=== PATIENT | female | born 1975 | race Caucasian/White ===

== ENCOUNTER → 2017-06-19 | Outpatient (CLI) | payer OTHER ==
[~2017-06-19] MED LIST: EFF/375 PO; VENL150C PO; VENL75CA73 PO
[2017-06-19 10:45] LABS: URINE APPEARANCE CLEAR (CLEAR); URINE BILIRUBIN NEG (NEG); URINE COLOR YELLOW; URINE EPITHELIAL CELL AUTO 0-5 /lpf (0-5); URINE NITRITE NEG (NEG); URINE SPECIFIC GRAVITY 1.009 (1.000-1.030); UROBILINOGEN NEG (NEG)
[2017-06-19 10:46] LABS: MANUAL MICROSCOPIC REQUIRED? NO; REVIEW REQ? NO
== END | disposition home or self-care (01) ==
LOC: C.LAB 09:24
PROVIDERS: ATTEND Family Medicine
DX: R31.9 Hematuria, unspecified (principal)

== ENCOUNTER 2017-07-16 13:33 | Emergency (ER) | payer OTHER ==
[~2017-07-16] VITALS: Ht 165.1 cm; Wt 72.2 kg
[~2017-07-16 13:33] MED LIST changes: -VENL150C PO; -VENL75CA73 PO
[2017-07-16 13:35] VITALS: TEMP 36.7; Ht 165.1 cm; Wt 72.2 kg
[2017-07-16] MEDS ORDERED: ASPIRIN 81 MG CHEW PO STA (13:48)
[2017-07-16] MEDS ORDERED: SODIUM CHLORIDE 0.9% 1000ML 1,000 ML IV STA (13:48)
[2017-07-16] MEDS ORDERED: ONDANSETRON INJ 2 MG/ML 2 ML VIAL IV STA (13:48)
[2017-07-16 13:52] VITALS: O2SAT 97
[2017-07-16] MEDS ORDERED: NITROGLYCERIN 0.4 MG SL PER TAB CHARGE SL PRN (14:00)
[2017-07-16 14:04] LABS: BASO % 0.4 %; BASO ABS # 0.03 K/uL (0-0.2); COMPLETE YES; EOS % 0.6 %; HEMATOCRIT 38.3 % (37-47); IG% 0.1 %; LYMPH ABS # 2.04 K/uL (1.2-3.4); MEAN CELL VOLUME 93.6 fL (80-100); MEAN CORPUSCULAR HEMOGLOBIN 31.8 pg (25-34); MEAN CORPUSCULAR HGB CONC 33.9 g/dl (32-36); MEAN PLATELET VOLUME 8.4 fL (7.4-10.4); MONO % 8.7 %; NEUT % 60.2 %; PLATELET COUNT 242 K/uL (130-400); RED BLOOD COUNT 4.09 M/uL (4.2-5.4); WHITE BLOOD COUNT 6.79 K/uL (4.8-10.8)
--- NOTE | 2017-07-16 14:16 | DIAGNOSTIC IMAGING REPORT ---
CHEST ONE VIEW PORTABLE HISTORY: Atypical CHEST PAIN COMPARISON: None. FINDINGS: The lungs are clear. Cardiac silhouette is normal in size. No pleural effusions. No pneumothorax. IMPRESSION: No acute process. Electronically signed by: Jose David Nicolas M.D. 07/16/2017 2:15 PM Dictated Date/Time: 07/16/2017 2:13 PM
[2017-07-16] MEDS ORDERED: VENL75CA73 PO (14:17)
[2017-07-16] MEDS ORDERED: VENL150C PO (14:17)
[2017-07-16 14:24] LABS: ALT/SGPT 21 U/L (12-78); AST/SGOT 14 U/L (15-37); BLOOD UREA NITROGEN 14 mg/dl (7-18); BUN/CREATININE RATIO 15.5 (10-20); CALCIUM 9.2 mg/dl (8.5-10.1); CARBON DIOXIDE 28 mmol/L (21-32); CHLORIDE 101 mmol/L (98-107); CREATININE 0.92 mg/dl (0.60-1.20); GLUCOSE 85 mg/dl (70-99); POTASSIUM 3.6 mmol/L (3.5-5.1); SODIUM 135 mmol/L (136-145)
[2017-07-16 14:29] LABS: ALKALINE PHOSPHATASE 66 U/L (45-117)
[2017-07-16] MEDS ORDERED: ACETAMINOPHEN 500 MG TAB PO STA (14:42)
[2017-07-16] MEDS ORDERED: KETOROLAC TROMETHAMINE 30 MG/ML VIAL IV STA (15:56)
--- NOTE | 2017-07-16 17:14 | EMERGENCY ROOM VISIT NOTE ---
History Report prepared by Sergio: Can Cavanaugh Under the Supervision of: Dr. Devan Humphrey M.D. First contact with patient: 13:38 Chief Complaint: CARDIAC ASSESSMENT Stated Complaint: CHEST PAIN History of Present Illness The patient is a 42 year old female who presents to the Emergency Room with complaints of persistent chest palpitations beginning 20 minutes ago. Her symptoms began while she was sitting and talking on the phone. The patient's symptoms are improved with deep breathing. She notes that she has been under a lot of stress recently. She is unsure if her symptoms are related to anxiety. The patient also complains of nausea, left sided neck pain and upper back pain. 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 The patient is not on any blood thinners and has no history of blood clots. She notes that she is on medication for depression, and had her medication dosage increased a few weeks ago. She had a stress test about six years ago which was normal. Source of History: patient Onset: 20 minutes ago Position: chest Quality: other (palpitations) Timing: other (persistent) Modifying Factors (Relieving): breathing (deep) Associated Symptoms: + neck pain (left side), + nausea, + back pain (upper) Review of Systems See HPI for pertinent positives and negatives. A total of ten systems were reviewed and were otherwise negative. Past Medical & Surgical Medical Problems: (1) CML in remission (2) Ectopic (3) UTI (urinary tract infection) Surgical Problems: (1) History of unilateral salpingectomy Family History No pertinent family history stated. Social History Smoking Status: Never Smoker Alcohol Use: occasionally Marital Status: Occupation Status: employed Current/Historical Medications Scheduled Venlafaxine Hcl (Venlafaxine Extended Rel), 75 MG PO Q2D Venlafaxine Hcl (Effexor Xr), 150 MG PO DAILY Allergies Coded Allergies: Latex (Verified Allergy, Unknown, RASH, 07/16/17) Levofloxacin (Verified Allergy, Unknown, RASH, 07/16/17) Morphine (Verified Allergy, Unknown, HIVES, 07/16/17) Physical Exam Vital Signs Date Time Temp Pulse Resp B/P (MAP) Pulse Ox O2 Delivery O2 Flow Rate FiO2 07/16/17 17:41 70 18 122/80 99 Room Air 07/16/17 16:05 67 18 128/75 100 Room Air 07/16/17 14:57 72 18 129/77 100 Room Air 07/16/17 14:13 65 18 126/85 97 Room Air 07/16/17 13:52 97 Room Air 07/16/17 13:51 64 07/16/17 13:35 36.7 72 20 157/91 99 Room Air Physical Exam GENERAL: Awake, alert, anxious-appearing, in no distress HENT: Normocephalic, atraumatic. Oropharynx unremarkable. EYES: Normal conjunctiva. Sclera non-icteric. NECK: Supple. No nuchal rigidity. FROM. No JVD. RESPIRATORY: Clear to auscultation. CARDIAC: Regular rate, normal rhythm. Extremities warm and well perfused. Pulses equal. ABDOMEN: Soft, non-distended. No tenderness to palpation. No rebound or guarding. No masses. RECTAL: Deferred. MUSCULOSKELETAL: Chest examination reveals no tenderness. The back is symmetrical on inspection without obvious abnormality. There is no CVA tenderness to palpation. No joint edema. LOWER EXTREMITIES: Calves are equal size bilaterally and non-tender. No edema. No discoloration. NEURO: Normal sensorium. No sensory or motor deficits noted. SKIN: No rash or jaundice noted. Medical Decision & Procedures ER Provider Diagnostic Interpretation: X-ray: Per my interpretation, radiologist review. CHEST ONE VIEW PORTABLE FINDINGS: The lungs are clear. Cardiac silhouette is normal in size. No pleural effusions. No pneumothorax. IMPRESSION: No acute process. Electronically signed by: Jose David Nicolas M.D. 07/16/2017 2:15 PM Laboratory Results 07/16/17 13:49 Red Blood Count 4.09, Mean Corpuscular Volume 93.6, Mean Corpuscular Hemoglobin 31.8, Mean Corpuscular Hemoglobin Concent 33.9, Mean Platelet Volume 8.4, Neutrophils (%) (Auto) 60.2, Lymphocytes (%) (Auto) 30.0, Monocytes (%) (Auto) 8.7, Eosinophils (%) (Auto) 0.6, Basophils (%) (Auto) 0.4, Neutrophils # (Auto) 4.08, Lymphocytes # (Auto) 2.04, Monocytes # (Auto) 0.59, Eosinophils # (Auto) 0.04, Basophils # (Auto) 0.03 8/23/17 13:49 Test 07/16/17 13:49 07/16/17 16:50 White Blood Count 6.79 K/uL (4.8-10.8) Red Blood Count 4.09 M/uL (4.2-5.4) Hemoglobin 13.0 g/dL (12.0-16.0) Hematocrit 38.3 % (37-47) Mean Corpuscular Volume 93.6 fL (80-100) Mean Corpuscular Hemoglobin 31.8 pg (25-34) Mean Corpuscular Hemoglobin Concent 33.9 g/dl (32-36) Platelet Count 242 K/uL (130-400) Mean Platelet Volume 8.4 fL (7.4-10.4) Neutrophils (%) (Auto) 60.2 % Lymphocytes (%) (Auto) 30.0 % Monocytes (%) (Auto) 8.7 % Eosinophils (%) (Auto) 0.6 % Basophils (%) (Auto) 0.4 % Neutrophils # (Auto) 4.08 K/uL (1.4-6.5) Lymphocytes # (Auto) 2.04 K/uL (1.2-3.4) Monocytes # (Auto) 0.59 K/uL (0.11-0.59) Eosinophils # (Auto) 0.04 K/uL (0-0.5) Basophils # (Auto) 0.03 K/uL (0-0.2) RDW Standard Deviation 43.4 fL (36.4-46.3) RDW Coefficient of Variation 12.7 % (11.5-14.5) Immature Granulocyte % (Auto) 0.1 % Immature Granulocyte # (Auto) 0.01 K/uL (0.00-0.02) Anion Gap 6.0 mmol/L (3-11) Est Creatinine Clear Calc Drug Dose 77.7 ml/min Estimated GFR () 87.8 Estimated GFR (Non- 75.7 BUN/Creatinine Ratio 15.5 (10-20) Calcium Level 9.2 mg/dl (8.5-10.1) Total Bilirubin 0.4 mg/dl (0.2-1) Direct Bilirubin < 0.1 mg/dl (0-0.2) Aspartate Amino Transf (AST/SGOT) 14 U/L (15-37) Alanine Aminotransferase (ALT/SGPT) 21 U/L (12-78) Alkaline Phosphatase 66 U/L (45-117) Total Protein 7.7 gm/dl (6.4-8.2) Albumin 4.0 gm/dl (3.4-5.0) Lipase 338 U/L (73-393) Troponin I < 0.015 ng/ml (0-0.045) Laboratory results reviewed by me Medications Administered Medications (Trade) Dose Ordered Sig/Odin Route Start Time Stop Time Status Last Admin Dose Admin Ondansetron HCl (Zofran Inj) 4 mg NOW STAT IV 07/16/17 13:48 07/16/17 13:51 DC 07/16/17 14:09 4 MG Sodium Chloride 1,000 ml @ 999 mls/hr Q1H1M STAT IV 07/16/17 13:48 07/16/17 14:48 DC 07/16/17 14:12 999 MLS/HR Aspirin (Aspirin Chew) 324 mg NOW STAT PO 07/16/17 13:48 07/16/17 13:51 DC 07/16/17 14:11 324 MG Nitroglycerin (Nitrostat Tab) 0.4 mg Q5M PRN SL 07/16/17 14:00 07/16/17 19:36 DC 07/16/17 14:12 0.4 MG Acetaminophen (Tylenol Tab) 1,000 mg NOW STAT PO 07/16/17 14:42 07/16/17 14:43 DC 07/16/17 14:56 1,000 MG Ketorolac Tromethamine (Toradol Inj) 30 mg NOW STAT IV 07/16/17 15:56 07/16/17 15:57 DC 07/16/17 16:04 30 MG ECG Indication: palpitations Rate (beats per minute): 72 Rhythm: normal sinus Findings: no acute ischemic change, other (Normal axis. ) Change: Repeat ECG was unchanged from the previous. ED Course 1341: The patient was evaluated in room C2. A complete history and physical exam was performed. 1348: Ordered Aspirin Chew 324 mg PO, Sodium Chloride 1000 ml @ 999 mls/hr IV, Zofran Inj 4 mg IV. 1400: Ordered Nitrostat Tab 0.4 mg SL. 1442: Ordered Tylenol Tab 1000 mg PO. 1556: Ordered Toradol Inj 30 mg IV. 1614: I reassessed the patient. Her pain has resolved. 1754: I reevaluated the patient. Discussed results and discharge instructions: she verbalized understanding and agreement. The patient is ready for discharge. Medical Decision I reviewed the patient's past medical history, medications, and the nursing notes as described above. Triage Nursing notes reviewed. The patient's presentation and history were concerning for ACS, arrhythmia, pneumonia, bronchitis, pericarditis, myocarditis, costochondritis and panic attack. Patient is a 42 y/o woman who presents to ED with c/o of palpitations and cp per HPI. On arrival the patient is in NAD. AFVSS. Reports palpitations but with NSR without ectopy. EKG unremkarlable. Trop negative. CXR unremarkable. PERC negative. NTG with resolution of sx but effect non-specific. 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 Thus unlikely acs. Sx additionally improved with apap and toradol. Findings and plan for follow-up d/ w patient. Patient agreeable and d/c'd per discharge instructions. Impression Primary Impression: Chest pain Additional Impression: Heart palpitations Scribe Attestation The scribe's documentation has been prepared under my direction and personally reviewed by me in its entirety. I confirm that the note above accurately reflects all work, treatment, procedures, and medical decision making performed by me. Departure Information Dispostion Home / Self-Care Referrals Daniel Crowder D.O. (PCP) Patient Instructions Chest Pain - [facility], ED Palpitations, My [facility] Additional Instructions Please follow up with your primary care physician in the next 1-3 days for reevaluation. Otherwise, your exam, EKG, chest x-ray, and lab results did not show signs of an emergent condition at this time. Return to the emergency department for worsening symptoms as described in the accompanying instructions. Problem Qualifiers
[2017-07-16 17:41] VITALS: BP 122/80; PULSE 70; O2SAT 99
== END 2017-07-16 18:09 | disposition home or self-care (01) ==
LOC: C.EDB 13:34 → C.EDC 18:09
DX: R07.9 Chest pain, unspecified (principal); R00.2 Palpitations; F32.9 Major depressive disorder, single episode, unspecified; Z85.6 Personal history of leukemia; Z86.73 Personal history of transient ischemic attack (TIA), and cerebral infarction without residual deficits; Z90.721 Acquired absence of ovaries, unilateral

== ENCOUNTER 2025-02-08 16:21 | Observation (INO) ==
--- NOTE | 2025-02-08 16:47 | Emergency Department Note ---
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 States she then had some sharp pain transiently into her left arm. This lasted. Then then resolved and then returned. Took some Tums without improvement. No nausea. Maybe little short of breath. No syncope or trauma. No heavy lifting or other illness in the last week. Patient states driving over here to the hospital with few return of significant chest discomfort and a bit of left arm pain but that resolved upon getting to the parking lot here. Denies symptoms currently. Did recently travel to [place] last week. Denies leg pain. Denies any heart issues in the past or family medical history of heart issues to her knowledge. Did have a stress test some years ago that was normal after an abnormal EKG. No numbness or pain currently in the left arm. PAST MEDICAL HISTORY: As noted above MEDICATIONS: Reviewed home medications FMH: No significant cardiac disease reported SOCIAL HISTORY: Non-smoker PHYSICAL EXAM: GENERAL: alert and oriented in no acute distress on stretcher Head: normocephalic and atraumatic EYES: No injection, discharge or icterus. NECK: Trachea midline ENT: Mucous membranes pink and moist LUNGS: Airway patent. No retractions. Breath sounds clear HEART: Regular rate and rhythm. No chest wall tenderness ABDOMEN: Soft and non-tender, without guarding or rebound. SKIN: Acyanotic, warm, dry, without rashes EXTREMITIES: Without swelling, tenderness or deformity NEUROLOGICAL: No focal deficits. No aphasia. No facial droop or slurred speech. Ambulatory. EK bpm sinus bradycardia with unclear right bundle branch block. No acute ST segment elevation or depression with a QTc of 384.. EK bpm sinus bradycardia incomplete right bundle branch block. No acute ST segment elevation or depression without significant change from previous. CONTINUOUS CARDIAC MONITORING: was ordered and showed a heart rate of 50s to 70s bpm in sinus bradycardia to normal sinus rhythm Patient's laboratory studies and imaging reviewed. Differential includes Cardiac ischemia, aortic dissection, pulmonary embolism, pneumothorax, pneumonia, pericarditis, myocarditis, esophageal rupture, GERD, cholecystitis, pancreatitis, musculoskeletal, as well as other pathologies. IMPRESSION/MEDICAL DECISION MAKING: No pain on palpation of the chest with move the left arm. No syncope or trauma. No recent illness reported. Did travel last week. As such we will complete a D-dimer given random and chest pressure. Not significant tachycardic toxic however lower suspicion for PE and dissection. EKG without evidence of STEMI. No significant family history or truly real significant personal risk factors other than age and weight. Will give full dose aspirin. Basic blood work obtained. Patient did shortly have return of chest discomfort. Repeat EKG without significant changes. Symptoms quite transient. Will continue to monitor. Blood work here without significant leukocytosis or anemia. No significant lecture light abnormalities as acute renal dysfunction. No transaminitis or concerning findings for hepatitis/pancreatitis. D-dimer normal doubt PE. Troponin returns normal at 3.9 drawn approximately 2 and half hours after onset of symptoms. Heart score low risk. Discussed with the patient findings. Discussed given fairly quick presentation to the ER after start of symptoms would recommend that we repeat a troponin here to ensure no change. Discussed with the other option possible observation. In discussion with the patient and her at bedside she felt much more comfortable given the severity of early symptoms by her report of staying for further observation and possible stress tomorrow. Discussed with the hospitalist team here. DIAGNOSIS: Atypical chest pain DISPOSITION: Hospitalist will evaluate Patient was agreeable with this plan. Past Med/Surg History Problem List (Updated 02/08/25 @ 19:38 by Lili Greenberg DO) GERD (gastroesophageal reflux disease) Atypical chest pain (Acute) Cervicogenic headache Occipital neuralgia Chronic migraine Chronic daily headache Chiari malformation Herpes zoster Anxiety (Chronic) Ectopic History of unilateral salpingectomy Diverticulosis (Chronic) Medical History Anxiety Cervicogenic headache Chiari malformation Chronic daily headache Chronic migraine Chronic myelogenous leukemia Occipital neuralgia Surgical History H/O bone marrow transplant H/O tubal ligation H/O: Hx of bilateral breast reduction surgery Family History Father Cancer Mother Hypertension Social History Smoking Status: Never smoker Hx Alcohol Use: Yes Alcohol type: beer, wine and hard liquor Hx Substance Use: No Preferred Language: Urdu Rn Staffing Required: No Beliefs That Will Affect Care: None marital status: Current Living Situation: Spouse current occupational status: employed 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 [employer] Feels Safe at Home: Yes Assistive Devices: Glasses Allergies Allergies Allergy/AdvReac Type Severity Reaction Status Date / Time latex Allergy Intermediate RASH Verified 02/08/25 18:01 levofloxacin Allergy Intermediate RASH Verified 02/08/25 18:01 morphine Allergy Intermediate HIVES Verified 02/08/25 18:01 oxycodone [From OxyContin] AdvReac Intermediate Hallucinati Verified 02/08/25 18:01 ng Home Meds Home Medications Medication Instructions Recorded Confirmed buspirone 10 mg tablet 10 mg PO BID 02/08/25 02/08/25 cholecalciferol (vitamin D3) 50 1,000 mcg PO BID 02/08/25 02/08/25 mcg (2,000 unit) tablet (Vitamin D3) cyanocobalamin (vitamin B-12) 1,000 mcg PO DAILY 02/08/25 02/08/25 1,000 mcg tablet (Vitamin B-12) fluoxetine 20 mg capsule 20 mg PO DAILY 02/08/25 02/08/25 galcanezumab-gnlm 120 mg/mL 120 mg subcut MONTHLY 02/08/25 02/08/25 subcutaneous pen injector (Emgality Pen) Results & Data (ED) Vital Signs Vital Signs - 24 hr 02/08/25 16:26 02/08/25 16:57 02/08/25 18:02 Temperature 36.5 C Temperature Source Temporal Artery Scan Pulse Rate 65 58 L Pulse Rate [Right Finger] 62 Pulse Rhythm [Right Finger] Regular Pulse Strength [Right Finger] Normal Respiratory Rate 18 18 Respiratory Effort / Characteristics Non-Labored Spontaneous Non-Labored Spontaneous Respiratory Depth Normal Normal Respiratory Pattern Regular Regular Blood Pressure 125/67 Blood Pressure [Right Arm] 132/81 Blood Pressure Mean 86 Blood Pressure Mean [Right Arm] 98 Blood Pressure Position [Right Arm] Sitting Pulse Oximetry 98 94 Oxygen Delivery Method Room Air Room Air Sepsis Recent Fever Within 48 Hours No Sepsis New/Unexplained Change in Mental Status N/A Sepsis Action Taken by Nursing No Action Required Laboratory Data 02/08/25 16:40 02/08/25 16:40 Lab Results 02/08/25 Range/Units 16:40 WBC 6.78 (4.8-10.8) K/ul RBC 4.36 (4.20-5.40) M/uL Hgb 13.6 (12.0-16.0) g/dl Hct 40.0 (37.0-47.0) % MCV 91.7 (80.0-100.0) fL MCH 31.2 (25.0-34.0) pg MCHC 34.0 (32.0-36.0) g/dL RDW Std Deviation 43.4 (36.4-46.3) fL RDW Coeff of Olga 12.9 (11.5-14.5) % Plt Count 265 (130-400) K/uL MPV 8.7 L (9.4-12.4) fL Immature Gran % (Auto) 0.1 % Neut % (Auto) 54.7 % Lymph % (Auto) 33.0 % Delta % (Auto) 10.5 % Eos % (Auto) 1.0 % Baso % (Auto) 0.7 % Neut # (Auto) 3.70 (1.40-6.50) K/uL Lymph # (Auto) 2.24 (1.20-3.40) K/uL Delta # (Auto) 0.71 H (0.11-0.59) K/uL Eos # (Auto) 0.07 (0.00-0.50) K/uL Baso # (Auto) 0.05 (0.00-0.20) K/uL Immature Gran # (Auto) 0.01 (0.01-0.20) K/uL PT 10.1 (9.0-12.0) Seconds INR 0.9 (0.9-1.1) D-Dimer 210 (0-500) ug/L FEU Sodium 140 (136-145) mmol/L Potassium 3.9 (3.5-5.1) mmol/L Chloride 100 (98-107) mmol/L Carbon Dioxide 33 H (21-32) mmol/L Anion Gap 7 (3-11) BUN 13 (6-23) mg/dl Creatinine 0.83 (0.6-1.2) mg/dl Est Cr Clr Drug Dosing 86.1 ml/min eGFR 85.30 BUN/Creatinine Ratio 15.7 (10-20) Glucose 95 (70-99(Fasting)) mg/dl Calcium 10.6 H (8.6-10.3) mg/dl Total Bilirubin 0.3 (0.2-1.0) mg/dl AST 32 (13-39) U/L ALT 40 (7-52) U/L Alkaline Phosphatase 64 (34-104) U/L Troponin I High Sens 3.9 (0-14) pg/ml Total Protein 8.0 (6.0-8.3) gm/dl Albumin 4.8 (3.4-5.0) gm/dl Globulin 3.2 (2.5-4.0) gm/dl Albumin/Globulin Ratio 1.5 (0.9-2) Lipase 46 (11-82) U/L Administered Medications Acetaminophen (Acetaminophen 325 Mg Tab) 650 mg PO Q4H PRN PRN Reason: Pain or Fever Stop: 03/10/25 18:40 Last Admin: 02/08/25 21:11 Dose: 650 mg Documented By: JOELLE Buspirone HCl (Buspirone 5 Mg Tab) 10 mg PO BID [facility] Stop: 03/10/25 21:33 Last Admin: 02/08/25 22:04 Dose: 10 mg Documented By: JOELLE Enoxaparin Sodium (Enoxaparin Inj 40 Mg/0.4 Ml Syr) 40 mg SQ Q24H [facility] Stop: 03/10/25 20:59 Last Admin: 02/08/25 21:03 Dose: 40 mg Documented By: JOELLE Famotidine (Pepcid 20mg Iv Push) 20 mg in 5 mls @ 2.5 mls/min IV Q12H ORALIA Stop: 03/10/25 20:59 Last Admin: 02/08/25 21:03 Dose: 2.5 mls/min Documented By: JOELLE Discontinued Medications Aspirin (Aspirin Chew 324 Mg) 324 mg PO NOW STA Stop: 02/08/25 16:43 Last Admin: 02/08/25 16:53 Dose: 324 mg Documented By: [facility] Imaging Data Radiologist's Impression: Chest X-Ray 02/08/25 16:42 INDICATION: Chest pain. TECHNIQUE: Frontal radiograph of the chest. COMPARISON: Radiograph from 07/16/2017. FINDINGS: The cardiomediastinal silhouette and pulmonary vasculature appear within normal limits. No infiltrate, pleural effusion or pneumothorax. No acute osseous abnormality evident. IMPRESSION: No acute cardiopulmonary process. Electronically signed by Carmelo Nazario 02-08-2025 5:44 PM Discharge Plan Visit Data Chief Complaint: Chest Pain Stated Complaint: CHEST PAIN ED Provider: Kendrick Riojas Discharge Problem: Atypical chest pain Patient Disposition: Admitted As Inpatient Discharge Instructions Interventions: ED Discharge Assessment Last Done: 02/08/25 20:50
[2025-02-08 16:52] LABS: Basophils # (auto) 0.05 K/uL (0.00-0.20); Basophils % (auto) 0.7 %; Eosinophils # (auto) 0.07 K/uL (0.00-0.50); Hemoglobin 13.6 g/dl (12.0-16.0); Immature Granulocytes # (auto) 0.01 K/uL (0.01-0.20); Immature Granulocytes % (auto) 0.1 %; Lymphocytes # (auto) 2.24 K/uL (1.20-3.40); Mean Corpuscular Hemoglobin 31.2 pg (25.0-34.0); Mean Corpuscular Volume 91.7 fL (80.0-100.0); Mean Platelet Volume 8.7 fL (9.4-12.4); Monocytes # (auto) 0.71 K/uL (0.11-0.59); Monocytes % (auto) 10.5 %; Neutrophils % (auto) 54.7 %; Platelet Count 265 K/uL (130-400); RDW Coefficient of Variation 12.9 % (11.5-14.5); RDW Standard Deviation 43.4 fL (36.4-46.3); Red Blood Count 4.36 M/uL (4.20-5.40); White Blood Count 6.78 K/ul (4.8-10.8)
[2025-02-08] MEDS: ASPIRIN CHEW 324 MG PO STA (16:53)
[2025-02-08 17:14] LABS: Albumin Globulin Ratio 1.5 (0.9-2); Albumin Level 4.8 gm/dl (3.4-5.0); BUN Creatinine Ratio 15.7 (10-20); Bilirubin,Total 0.3 mg/dl (0.2-1.0); Calcium 10.6 mg/dl (8.6-10.3); Creatinine Clr Calc Pharmacy 86.1 ml/min; Globulin 3.2 gm/dl (2.5-4.0); Potassium 3.9 mmol/L (3.5-5.1)
[2025-02-08 17:21] LABS: Troponin I High Sensitivity 3.9 pg/ml (0-14)
[2025-02-08 17:24] LABS: D Dimer 210 ug/L FEU (0-500); INR 0.9 (0.9-1.1); Prothrombin Time 10.1 Seconds (9.0-12.0)
--- NOTE | 2025-02-08 17:44 | XRay Report ---
INDICATION: Chest pain. TECHNIQUE: Frontal radiograph of the chest. COMPARISON: Radiograph from 07/16/2017. FINDINGS: The cardiomediastinal silhouette and pulmonary vasculature appear within normal limits. No infiltrate, pleural effusion or pneumothorax. No acute osseous abnormality evident. IMPRESSION: No acute cardiopulmonary process. Electronically signed by Carmelo Nazario 02-08-2025 5:44 PM
[2025-02-08] MEDS ORDERED: POLYETHYLENE (MIRALAX) 17 GM PACK PO PRN (18:41)
--- NOTE | 2025-02-08 18:55 | Billing Data ---
Date of Service February 08, 2025 Coding Level of Care Code 97182 INT INP/OBS CARE
--- NOTE | 2025-02-08 18:56 | History & Physical Report ---
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 Pt's EKG, labs, including troponin and D-dimer are reassuring, however, reports of episodic left sided chest pain that radiates to left arm at rest is concerning for cardiac ischemia. Pt admitted for further cardiac work up. #Atypical chest pain - Ordered stress echo - Ordered EKG for chest pain - Consider Cardio consult pending results from stress echo - Consider IV heparin if pt's chest pain progresses, troponin elevation or EKG changes #Chiari malformation - Holding Emgality for migraines #GERD - Ordered pantoprazole #Anxiety - Continue Buspar and Fluoxetine Dispo: Med tele Diet: regular, NPO after midnight VTE: lovenox SQ Code: Full History of Present Illness Chief Complaint: Chest pain Primary Care Provider: Christine Torre, Patient is a 49-year-old female history of Chiari malformation, daily headaches/migraines, anxiety, and 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 She states that after she ate lunch, she noted left chest tightness that lasted for a few seconds. Minutes later she has chest tightness/pain that radiated to left shoulder. She tried taking tums, which did not stop further short episodes of left sided chest symptoms. She states some episodes have accompanying SOB, however denies dizziness, nausea, or jaw pain. Today, she has had some belching and heartburn sensations since coming to ED. Pt denies history of previous episodes of chest pain with or without exercise. Pt walks her dog up to 2 miles 3-5 times per week. Pt reports she follows with a neurologist of [place] for the Chiari malformation and states she is a candidate for surgery. She follows with oncology for her hx of CML, next annual appointment is next week. Allergies Allergy/AdvReac Type Severity Reaction Status Date / Time latex Allergy Intermediate RASH Verified 02/08/25 18:01 levofloxacin Allergy Intermediate RASH Verified 02/08/25 18:01 morphine Allergy Intermediate HIVES Verified 02/08/25 18:01 oxycodone [From OxyContin] AdvReac Intermediate Hallucinati Verified 02/08/25 18:01 ng Home Medications Medication Instructions Recorded Confirmed Type buspirone 10 mg tablet 10 mg PO BID 02/08/25 02/08/25 History cholecalciferol (vitamin D3) 50 1,000 mcg PO BID 02/08/25 02/08/25 History mcg (2,000 unit) tablet (Vitamin D3) cyanocobalamin (vitamin B-12) 1,000 mcg PO DAILY 02/08/25 02/08/25 History 1,000 mcg tablet (Vitamin B-12) fluoxetine 20 mg capsule 20 mg PO DAILY 02/08/25 02/08/25 History galcanezumab-gnlm 120 mg/mL 120 mg subcut MONTHLY 02/08/25 02/08/25 History subcutaneous pen injector (Emgality Pen) Past Med/Surg History Problem List (Updated 02/08/25 @ 19:38 by Lili Greenberg DO) GERD (gastroesophageal reflux disease) Atypical chest pain (Acute) Cervicogenic headache Occipital neuralgia Chronic migraine Chronic daily headache Chiari malformation Herpes zoster Anxiety (Chronic) Ectopic History of unilateral salpingectomy Diverticulosis (Chronic) Medical History Anxiety Cervicogenic headache Chiari malformation Chronic daily headache Chronic migraine Chronic myelogenous leukemia Occipital neuralgia Surgical History H/O bone marrow transplant H/O tubal ligation H/O: Hx of bilateral breast reduction surgery Family History Father Cancer Mother Hypertension Social History Smoking Status: Never smoker Hx Alcohol Use: Yes Hx Substance Use: No Preferred Language: Palestinian marital status: Current Living Situation: Spouse current occupational status: employed 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 Radial and pedal pulses are normal. No edema noted at extremities GI: Non-distended, normoactive bowel sounds, soft nontender in a four quadrants MSK: Normal strength at upper and lower extremities Neuro: Normal sensation at upper and lower extremities Skin: Warm, dry and without rashes Psych:mood congruent, mildly anxious to current symptoms. Results & Data Results & Data Vital Signs (Past 12 Hours) Vital Signs Temp Pulse Pulse Resp BP BP Pulse Ox 02/08/25 18:02 62 18 132/81 94 02/08/25 16:57 58 L 02/08/25 16:26 36.5 C 65 18 125/67 98 O2 Del Method 02/08/25 18:02 Room Air 02/08/25 16:57 02/08/25 16:26 Room Air Laboratory Results 02/08/25 Range/Units 16:40 WBC 6.78 (4.8-10.8) K/ul RBC 4.36 (4.20-5.40) M/uL Hgb 13.6 (12.0-16.0) g/dl Hct 40.0 (37.0-47.0) % MCV 91.7 (80.0-100.0) fL MCH 31.2 (25.0-34.0) pg MCHC 34.0 (32.0-36.0) g/dL RDW Std Deviation 43.4 (36.4-46.3) fL RDW Coeff of Olga 12.9 (11.5-14.5) % Plt Count 265 (130-400) K/uL MPV 8.7 L (9.4-12.4) fL Immature Gran % (Auto) 0.1 % Neut % (Auto) 54.7 % Lymph % (Auto) 33.0 % [place] % (Auto) 10.5 % Eos % (Auto) 1.0 % Baso % (Auto) 0.7 % Neut # (Auto) 3.70 (1.40-6.50) K/uL Lymph # (Auto) 2.24 (1.20-3.40) K/uL [place] # (Auto) 0.71 H (0.11-0.59) K/uL Eos # (Auto) 0.07 (0.00-0.50) K/uL Baso # (Auto) 0.05 (0.00-0.20) K/uL Immature Gran # (Auto) 0.01 (0.01-0.20) K/uL PT 10.1 (9.0-12.0) Seconds INR 0.9 (0.9-1.1) D-Dimer 210 (0-500) ug/L FEU Sodium 140 (136-145) mmol/L Potassium 3.9 (3.5-5.1) mmol/L Chloride 100 (98-107) mmol/L Carbon Dioxide 33 H (21-32) mmol/L Anion Gap 7 (3-11) BUN 13 (6-23) mg/dl Creatinine 0.83 (0.6-1.2) mg/dl Est Cr Clr Drug Dosing 86.1 ml/min eGFR 85.30 BUN/Creatinine Ratio 15.7 (10-20) Glucose 95 (70-99(Fasting)) mg/dl Calcium 10.6 H (8.6-10.3) mg/dl Total Bilirubin 0.3 (0.2-1.0) mg/dl AST 32 (13-39) U/L ALT 40 (7-52) U/L Alkaline Phosphatase 64 (34-104) U/L Troponin I High Sens 3.9 (0-14) pg/ml Total Protein 8.0 (6.0-8.3) gm/dl Albumin 4.8 (3.4-5.0) gm/dl Globulin 3.2 (2.5-4.0) gm/dl Albumin/Globulin Ratio 1.5 (0.9-2) Lipase 46 (11-82) U/L Diagnostic Findings Chest X-Ray 02/08/25 16:42 INDICATION: Chest pain. TECHNIQUE: Frontal radiograph of the chest. COMPARISON: Radiograph from 07/16/2017. FINDINGS: The cardiomediastinal silhouette and pulmonary vasculature appear within normal limits. No infiltrate, pleural effusion or pneumothorax. No acute osseous abnormality evident. IMPRESSION: No acute cardiopulmonary process. Electronically signed by Carmelo Nazario 02-08-2025 5:44 PM Supervising Physician Co-Signing Physician Notes Patient seen and examined, chart reviewed, case discussed with Dr. Greenberg and I agree with the assessment and plan as above except as otherwise noted Labs and images reviewed 49yo F with a PMHx of CML s/p bone marrow transplant, chiari malformation w/ migraines who developed LEFT sided chest pain at rest. Short episodes a few seconds at a time. Several episodes today some with radiation to LEFT shoulder. No radiation to back or jaw. No similar episodes similar to this in the past. Does have gerd and had some belching/burning today however todays episodes were different in quality and dyspnea was new although is also a little anxious with episodes. EKG similar to prior ?incomplete RBBB although morphology overall similar and vs ?lead placement change in V2 Walks her dog 2 miles daily and has had no dyspnea/chest pain/dizziness with this. No precenting/crescendo anginal sx. Daily headaches 2/2 carmen malformation, follows with neuro in [place]. No recurrence of CML issues Chest pain Some concerning parts of her story including recurrent episodes at rest lasting short of duration that may have not caused a troponin to be positive however reassuring parts including good exercise tolerance walking dog regularly throughout the week without chest pain no acute ischemic changes on EKG and negative D-dimer. May have reflux (also reports a flare of this with acid taste in her mouth at time of assessment) +/- referred MSK symptoms related to her malformation however reasonable to pursue a stress test in the morning. If she has recurrent pain, rising troponin, or any ischemic symptoms overnight can heparinize at that time. Chest pain free at time of assessment. Agree with assessment and management as above Resident Activity Tracking Resident Involvement: Resident Care Provided Care Provided: Adult Hospital Medicine
[2025-02-08] MEDS: ENOXAPARIN INJ 40 MG/0.4 ML SYR SQ SCH (21:03)
[2025-02-08] MEDS: FAMOTIDINE 20MG IV PUSH 20 MG/5 ML SYR IV SCH (21:03)
[2025-02-08] MEDS: ACETAMINOPHEN 325 MG TAB PO PRN (21:11)
[2025-02-08] MEDS: busPIRone 5 MG TAB PO SCH (22:04)
[2025-02-08] MEDS ORDERED: diphenhydrAMINE 2%/ZINC 0.1% CREAM 28.4GM TUBE EXT PRN (23:28)
--- OUTSIDE RECORDS SUMMARY | 2025-02-09 04:07 | External Medical Summary | Summary of Care ---
Author Name Unknown Organization [facility] Address [address] [place] [address] Phone [phone] Care Team Providers Care Telephone Station Installer Name Role Phone Dianna Cross DO Primary Care Provider Reason for Visit * Reason Onset Date Comments Health Maintenance 02/07/2025 Encounter Details Date Type Department Care Team (Late st Contact Info) Description 02/07/2025 Telephone Family Practice [facility] [address] [place] [address] Dianna Cross DO [address] [facility] [place] [address] Health Maintenance Allergies Active Allergy Reactions Criticality Noted Date Comments Latex 01/23/2015 Levofloxacin 01/23/2015 Morphine 01/23/2015 documented as of this encounter (statuses as of 02/07/2025) Medications Polyethylene Glycol 3350 17 GM/SCOOP Oral Powder (MiraLax)Indicati ons:Abdominal bloating Take 17 g by mouth as needed for Constipation. Dissolve one heaping tablespoon in 8 ounces of water or juice. 1 Active Vitamin D 50 MCG (1999 UT) Oral Capsule Take 2,000 Units by mouth daily. Active Multivitamin Adult Oral Tablet Take by mouth. Active Advil Dual Action 125-250 MG Oral Tablet (Ibuprofen-Acetam inophen) Take by mouth . Active FLUoxetine HCl 20 MG Oral Capsule (PROzac) Take 1 Capsule by mouth in the morning. 30 Capsule 5 4 Active busPIRone HCl 10 MG Oral Tablet (Buspar) Take 1 Tablet by mouth in the morning and 1 Tablet at noon and 1 Tablet before bedtime. 60 Tablet 5 4 Active predniSONE 10 MG Oral Tablet (Deltasone) Take 5 tabs for 2 days, 4 tabs for 2 days, 3 tabs for 2 days, 2 tabs for 2 days 1 tab for 2 days 30 Tablet 5 Active Galcanezumab-gnlm 120 MG/ML Subcutaneous Solution Auto-injector (Emgality) Inject 2 mL (2 pens) under the skin first month of treatment. 2 mL 01/11/2025 1:33 PM EST 5 Active Galcanezumab-gnlm 120 MG/ML Subcutaneous Solution Auto-injector (Emgality) Inject 1 mL (1 pen) under the skin monthly after first month of treatment. 1 mL 5 5 Active SUMAtriptan Succinate 50 MG Oral Tablet (Imitrex) Take 1 tablet at onset of migraine. May take 1 additional tablet in 2 hours if needed. Do not exceed 2 tablets in 24 hours. 10 Tablet 4 5 Active documented as of this encounter (statuses as of 02/07/2025) Active Problems Problem Noted Date Diagnosed Date Chiari I malformation 01/04/2025 Medication overuse headache 01/04/2025 Other mixed anxiety disorders 02/13/2024 MDD (major depressive disord er), recurrent episode, moderate 02/13/2024 Chronic headache disorder 03/20/2021 Chronic myelogenous leukemia 03/16/2021 History of leukemia 02/08/2021 Overview (02/08/2021): CML. Diagnosed when 7.5 months . Given Gleevac. S/p bone marrow transplant. 2001. S/P allogeneic bone marrow transplant 02/08/2021 Overview (03/20/2021): 2001 secondary to CML. Intractable migraine without aura and without status migrainosus 02/08/2021 Abdominal bloating 02/08/2021 Lumbar degenerative disc disease 02/08/2021 Osteopenia of multiple sites 02/08/2021 History of Chiari malformation 09/15/2019 Irritable bowel syndrome without diarrhea 2015 documented as of this encounter (statuses as of 02/07/2025) Resolved Problems Problem Noted Date Diagnosed Date Resolved Date Headache 02/08/2021 02/08/2021 Lumbago 02/08/2021 02/08/2021 Urge incontinence 02/08/2021 02/08/2021 Overweight (BMI 25.0-29.9) 02/08/2021 0 02/22/2022 documented as of this encounter (statuses as of 02/07/2025) Immunizations Name Administration Dates Next Due COVID-19 mRNA, LNP-s, No Pre serve, 2-Dose Series ([employer]) 01/06/2021,12/16/2020 Seasonal Influenza Virus Vac cine, Unspecified Formulation 09/15/2019,10/17/2010 Seasonal Influenza, Recombin ant, RIV4, PF, ([employer]) 09/15/2019 Zoster Vaccine Recombinant ([employer]) 02/17/2024 (Deferred: Patient Refused) documented as of this encounter Social History Tobacco Use Types Packs/Day Years Used Date Smoking Tobacco: Never Smokeless Tobacco: Never Alcohol Use Standard Drinks/Week Comments Never 0 (1 standard drink = 0.6 oz pur e alcohol) AUDIT-C Answer Date Recorded Q1: How often do you have a drink containing alc ohol? Never 02/08/2021 Average Number of Drinks Not on file 021 Frequency of Binge Drinking Not on file 01/22 PHQ-2 Answer Date Recorded PHQ Adult Total Score 0 03/16/2021 Hunger Vital Sign Answer Date Recorded Within the past 12 months, y ou worried that your food would run out before you got the money to buy more. Never true 02/06/20 24 Within the past 12 months, t he food you bought just didn't last and you didn't have money to get more. Never true 02/06/2024 Childcare Answer Date Recorded Do you feel overwhelmed with taking care of a child, family member or friend? No 02/06/2024 Does your family need help f inding childcare? (Household - for ages 0-17 years) Not on file 02/06/2024 Clothing Answer Date Recorded Have you been unable to get clothing when it was really needed? No 02/06/2024 Is your family able to get c lothes or diapers when needed? (Household - for ages 0-17 years) Not on file 02/06/2024 Personal Safety Answer Date Recorded Do you feel unsafe or have concerns for your saf ety? No 02/06/2024 Do you have concerns for you r family's safety? (Household - for ages 0-17 years) Not on file 02/06/2024 Utilities Answer Date Recorded Do you have trouble paying y our heating, water, or electric bill? No 02/06/2024 Is your family able to pay t he heat, water, or electric bill? (Household - for ages 0-17 years) Not on file 02/06/2024 Does your family have access to good internet? (Household - for ages 0-17 years) Not on file 02/06/2024 Employment Status Answer Date Recorded Are you unemployed or without regular income? No 02/06/2024 Does the household have a re gular source of income? (Household - for ages 0-17 years) Not on file 02/06/2024 Social Connections Answer Date Recorded How often do you feel lonely or isolated from those around you? Sometimes 02/06/2024 Financial Resource Strain Answer Date R ecorded Do you have any trouble payi ng for your medications, or do you think you might in the future? No 02/06/2024 Does your family have troubl e paying for medicine? (Household - for ages 0-17 years) Not on file 02/06/2024 Transportation Needs Answer Date Record ed READ ONLY Do you have troubl e getting a ride to medical visits or work? Never True 02/06/2024 Does your family have a hard time getting a ride to doctors visits? (Household - for ages 0-17 years) Not on file 02/06/2024 Has lack of transportation k ept you from medical appointments, meetings, work, or from getting things needed for daily living? Check all that apply. (Adult - for ages 18 years and over) Not on file 02/06/2024 Do you (or your family) have trouble finding or paying for a ride (transportation)? (Household - for ages 0-17 years) Not on file 02/06/2024 Housing Stability Answer Date Recorded Do you currently live in a s helter or have no steady place to sleep at night? No 02/06/2024 READ ONLY Do you think you a re at risk of becoming homeless? No 02/06/2024 Does your family worry about paying for your home or becoming homeless? (Household - for ages 0-17 years) Not on file 0 02/06/2024 Are you homeless or worried that you might be in the future? (Adult - for ages 18 years and over) Not on file Are you (or your family) alexandra eless or worried that you might be in the future? (Household - for ages 0-17 years) Not on file Food Insecurity Answer Date Recorded Do you need food for this week? No 02/06/2024 Are you able to get enough f ood for your family? (Household - for ages 0-17 years) Not on file 02/06/2024 Does your family need food t his week? (Household - for ages 0-17 years) Not on file 02/06/2024 Do you always have enough fo od for your family? (Household - for ages 0-17 years) Not on file 02/06/2024 Food Insecurity Answer Date Recorded Within the past 12 months, y ou worried that your food would run out before you got the money to buy more. Never true 02/06/20 24 Within the past 12 months, t he food you bought just didn't last and you didn't have money to get more. Never true 02/06/2024 Do you need food for this week? No 02/06/2024 Comments No Sex and Gender Information Value Date Recorded Sex Assigned at Female 02/06/2024 8:50 AM EDT Legal Sex Female 1:04 PM EDT Gender Identity Female 02/06/2024 8:50 AM EDT Sexual Orientation Straight 02/06/2024 8: 50 AM EDT documented as of this encounter Miscellaneous Notes * Telephone Encounter - Loretta Regalado LPN - 02/07/2025 11:45 AM EDT Care Gaps Comprehensive Care Outreach Last Office/Telemedicine Visit: 02/17/2024 (in office), Visit date not found (telemedicine) Next Office Visit: Visit date not found Hemoglobin AIC Results: No results found for: "HEMOGLOBIN A1C" BP Readings from Last 1 Encounters: 12/23/24 120/80 Reviewed Health Maintenance below: Health Maintenance Topic Date Due Lipid Panel Never done HIV Screening Never done Hepatitis B Vaccine (1 of 3 - 19+ 3-dose series) Never done DTap/Tdap Vaccines (1 - Tdap) Never done Zoster Vaccines (1 of 2) Never done Pneumococcal Vaccine: 50+ Years (1 of 2 - PCV) Never done Cervical Cancer Screening Never done Colorectal Cancer Screening Never done COVID-19 Vaccine (3 - Pfizer risk series) 02/03/2021 Depression Monitoring 03/16/2022 Influenza Vaccine (FLU shot) (1) 07/25/2024 Mammogram 08/22/2024 Ov Mamm requested Pap altoona mobile qa tester 23 zlupko Colon requested lab Care Gap Outreach Action Taken: Left message and MyChart message sent documented in this encounter Plan of Treatment Upcoming Encounters Date Type Department Care Team (Late st Contact Info) Description 05/24/2025 7:00 AM EDT Office Visit Neurology [facility] [address] [place] [address] Lili Casper PA-C [address] [facility] [place] [id number] Health Maintenance Due Date Last Done Comments Lipid Panel 1973 HIV Screening 1988 DTap/Tdap Vaccines (1 - Tdap) 1992 Hepatitis B Vaccine (1 of 3 - 19+ 3-dose series) 1992 Pneumococcal Vaccine: 50+ Years (1 of 2 - PCV) 1992 Zoster Vaccines (1 of 2) 1992 Pap Smear 1994 Cervical Cancer Screening 2003 HPV/Co-Test 2003 Cologuard 2018 Colonoscopy 2018 Colorectal Cancer Screening 2018 Fecal Occult Blood Test 2018 Sigmoidoscopy 2018 COVID-19 Vaccine (3 - Pfizer risk series) 02/03/2021 01/06/2021, 12/16/2020 Depression Monitoring 03/16/2022 03/16/2021 Influenza Vaccine (FLU shot) (#1) 2024 09/15/2019, 09/15/2019, 10/17/2010 Mammogram 08/22/2024 08/22/2023, 10/24, 10/09/2017, Additional history exists Diabetes Screening 12/23/2027 12/23/2024, 0 01/31/2024, 02/22/2022, Additional history exists HPV (Gardasil) Vaccine Aged Out No lo nger eligible based on patient's age to complete this topic MENINGOCOCCAL (MENACTRA/MENVEO) Aged Out No longer eligible based on patient's age to complete this topic Meningitis B Vaccine (Bexsero/Trumemba) Aged Out No longer eligible based on patient's age to complete this topic documented as of this encounter Medical Devices Not on filedocumented as of this encounter Care Teams Telephone Station Installer Relationship Specialty Start Date End Date Dianna Cross DO [facility] [place] [address] PCP - General Family Medicine 12/23/24 documented as of this encounter
--- OUTSIDE RECORDS SUMMARY | 2025-02-09 04:08 | External Medical Summary | Summary of Care ---
Author Name Unknown Organization [facility] Address [address] [place] [address] Phone [phone] Care Team Providers Care Screen Making Supervisor Name Role Phone [place] Dianna Jeong DO Primary Care Provider Reason for Visit * Reason Comments Outpatient Testing Encounter Details Date Type Department Care Team (Late st Contact Info) Description 12/23/2024 7:50 AM EST Laboratory Laboratory [facility] [place] [address] [facility] [place] [id number] [facility] [address] [place] [address] Arthralgia, unspecified joint Allergies Active Allergy Reactions Criticality Noted Date Comments Latex 01/23/2015 Levofloxacin 01/23/2015 Morphine 01/23/2015 documented as of this encounter (statuses as of 12/23/2024) Medications Polyethylene Glycol 3350 17 GM/SCOOP Oral Powder (MiraLax)Indica tions:Abdominal bloating Take 17 g by mouth as needed for Constipation. Dissolve one heaping tablespoon in 8 ounces of water or juice. 1 Active Vitamin D 50 MCG (1999 UT) Oral Capsule Take 2,000 Units by mouth daily. Active Multivitamin Adult Oral Tablet Take by mouth. Activ e Advil Dual Action 125-250 MG Oral Tablet (Ibuprofen-Acet aminophen) Take by mouth . Act elisabet FLUoxetine HCl 20 MG Oral Capsule (PROzac) Take 1 Capsule by mouth in the morning. 30 Capsule 5 4 Active busPIRone HCl 10 MG Oral Tablet (Buspar) Take 1 Tablet by mouth in the morning and 1 Tablet at noon and 1 Tablet before bedtime. 60 Tablet 5 4 Active documented as of this encounter (statuses as of 12/23/2024) Active Problems Problem Noted Date Diagnosed Date Other mixed anxiety disorders 02/13/2024 MDD (major depressive disord er), recurrent episode, moderate 02/13/2024 Chronic headache disorder 03/20/2021 Chronic myelogenous leukemia 03/16/2021 History of leukemia 02/08/2021 Overview (02/08/2021): CML. Diagnosed when 7.5 months . Given Gleevac. S/p bone marrow transplant. 2002. S/P allogeneic bone marrow transplant 02/08/2021 Overview (03/20/2021): 2001 secondary to CML. Intractable migraine without aura and without status migrainosus 02/08/2021 Abdominal bloating 02/08/2021 Lumbar degenerative disc disease 02/08/2021 Osteopenia of multiple sites 02/08/2021 History of Chiari malformation 09/15/2019 Irritable bowel syndrome without diarrhea 2015 documented as of this encounter (statuses as of 12/23/2024) Resolved Problems Problem Noted Date Diagnosed Date Resolved Date Headache 02/08/2021 02/08/2021 Lumbago 02/08/2021 02/08/2021 Urge incontinence 02/08/2021 02/08/2021 Overweight (BMI 25.0-29.9) 02/08/2021 0 02/22/2022 documented as of this encounter (statuses as of 12/23/2024) Immunizations Name Administration Dates Next Due COVID-19 mRNA, LNP-s, No Pre serve, 2-Dose Series (Locationary) 01/06/2021,12/16/2020 Seasonal Influenza Virus Vac cine, Unspecified [...] ages 0-17 years) Not on file 02/06/2024 Comments No Sex and Gender Information Value Date Recorded Sex Assigned at Female 02/06/2024 8:50 AM EDT Legal Sex Female 1:04 PM EDT Gender Identity Female 02/06/2024 8:50 AM EDT Sexual Orientation Straight 02/06/2024 8: 50 AM EDT documented as of this encounter Plan of Treatment Upcoming Encounters Date Type Department Care Team (Late st Contact Info) Description 01/04/2025 7:00 AM EST Office Visit Neurology [facility] [place] [address] [place] [address] Lili Casper PA-C [address] [place] [id number] Pending Results Name Type Priority Associated Diagnoses Date /Time CBC WITH WBC DIFFERENTIAL Lab Routine Arthralgia, unspecified joint 12/23/2024 7:46 AM EST COMPREHENSIVE METABOLIC PANEL Lab Routine Arthralgia, unspecified joint 12/23/2024 7:46 AM EST CRP (INFLAMMATORY MARKER) Lab Routine Arthralgia, unspecified joint 12/23/2024 7:46 AM EST ERYTHROCYTE SEDIMENTATION RATE (ESR) Lab Routine Arthralgia, unspecified joint 12/23/2024 7:46 AM EST RHEUMATOID FACTOR Lab Routine Arthralgia, unspecified joint 12/23/2024 7:46 AM EST CYCLIC CITRULLINATED PEPTIDE IGG ANTIBODY Lab Routine Arthralgia, unspecified joint 12/23/2024 7:46 AM EST HLA B27 ANTIGEN, FLOW CYTOMETRY Lab Routine Arthralgia, unspecified joint 12/23/2024 7:46 AM EST CBC Lab Routine Arthralgia, unspecified joint 12/23/2024 7:46 AM EST DIFFERENTIAL, AUTOMATED Lab Routine Arthralgia, unspecified joint 12/23/2024 7:46 AM EST Health Maintenance Due Date Last Done Comments [...] 10/24, 10/09/2017, Additional history exists Diabetes Screening 01/30/2027 01/31/2024, 0 02/22/2022, 06/27/2021, Additional history exists HPV (Gardasil) Vaccine Aged Out No lo nger eligible based on patient's age to complete this topic MENINGOCOCCAL (MENACTRA/MENVEO) Aged Out No longer eligible based on patient's age to complete this topic documented as of this encounter Medical Devices Not on filedocumented as of this encounter Visit Diagnoses Diagnosis Arthralgia, unspecified joint documented in this encounter Additional Health Concerns Infection Onset Date Last Indicated Resolved Time Respiratory Rule-Out 12/23/2024 12/23/2024 documented as of this encounter Care Teams Screen Making Supervisor Relationship Specialty Start Date End Date Dianna Cross DO [address] [place] [address] PCP - General Family Medicine 12/23/24 documented as of this encounter
--- OUTSIDE RECORDS SUMMARY | 2025-02-09 04:08 | External Medical Summary | Summary of Care ---
Author Name Unknown Organization [facility] Address [address] [place] [address] Phone [phone] Care Team Providers Care Marketing Research Intern Name Role Phone Dianna Cross DO Primary Care Provider Reason for Visit * Reason Comments Acute Joint pain Encounter Details Date Type Department Care Team (Late st Contact Info) Description 12/23/2024 7:20 AM EST Office Visit [facility] [place] [address] [place] [address] Lynnette Hardy DO [address] [place] [address] Arthralgia, unspecified joint*; Viral respiratory illness; Rash and nonspecific skin eruption; History of Chiari malformation; Chronic myelogenous leukemia (HCC); S/P allogeneic bone marrow transplant (HCC); Moderate episode of recurrent major depressive disorder (HCC) Allergies Active Allergy Reactions Criticality Noted Date Comments Latex 01/23/2015 Levofloxacin 01/23/2015 Morphine 01/23/2015 documented as of this encounter (statuses as of 12/23/2024) Medications Polyethylene Glycol 3350 17 GM/SCOOP Oral Powder (MiraLax)Indic ations:Abdomin al bloating Take 17 g by mouth as needed for Constipation. Dissolve one heaping tablespoon in 8 ounces of water or juice. 02/09/20 21 Active Vitamin D 50 MCG (1999 UT) Oral Capsule Take 2,000 Units by mouth daily. Active Multivitamin Adult Oral Tablet Take by mouth. Activ e Advil Dual Action 125-250 MG Oral Tablet (Ibuprofen-Uri taminophen) Take by mouth . Ac tive FLUoxetine HCl 20 MG Oral Capsule (PROzac) Take 1 Capsule by mouth in the morning. 30 Capsule 5 08/17/20 24 Active busPIRone HCl 10 MG Oral Tablet (Buspar) Take 1 Tablet by mouth in the morning and 1 Tablet at noon and 1 Tablet before bedtime. 60 Tablet 5 08/17/20 24 Active hydrOXYzine HCl 50 MG Oral TabletIndicati ons:KAELA (generalized anxiety disorder) Take 1 Tablet by mouth every 6 hours as needed for Anxiety. 40 Tablet 2 08/17/20 24 025 Discontinued clonazePAM 1 MG Oral Tablet (KlonoPIN) Take 1 Tablet by mouth every night at bedtime. May also take 0.5 Tablets daily as needed for Anxiety. 45 Tablet 08/17/20 24 025 Discontinued Nirmatrelvir&R itonavir 300/100 20 x 150 MG & 10 x 100MG Oral Tablet Therapy Pack (Paxlovid (300/100)) Take 2 pink tablets of Nirmatrelvir and 1 white tablet of Ritonavir two times a day by mouth. 30 Tablet 09/02/20 24 025 Discontinued documented as of this encounter (statuses as [...] mRNA, LNP-s, No Pre serve, 2-Dose Series (Sanera) 01/06/2021,12/16/2020 Seasonal Influenza Virus Vac cine, Unspecified [...] 02/06/2024 Does the household have a re lar source of income? (Household - for ages [...] AM EDT documented as of this encounter Last Filed Vital Signs Vital Sign Reading Time Taken Comments Blood Pressure 120/80 12/23/2024 7:12 AM EST Pulse 72 12/23/2024 7:12 AM EST Temperature 36.2 C (97.2 F) 12/23/2024 7:12 AM ES T Respiratory Rate 18 12/23/2024 7:12 AM EST Oxygen Saturation - - Inhaled Oxygen Concentration - - Weight 82.8 kg (182 lb 9.6 oz) 12/23/2024 7:12 A M EST Height 162.6 cm (5' 4") 12/23/2024 7:12 AM EST Body Mass Index 31.34 12/23/2024 7:12 AM EST documented in this encounter Progress Notes * Lynnette Hardy, DO - 12/23/2024 7:22 AM EST Subjective Aline Sharif is a 49 year old female. Chief Complaint Patient presents with Acute Joint pain HPI: History of Present Illness Aline Sharif is a 49 year old female with Chiari malformation who presents with joint pain and dry cough. She has been experiencing joint pain and a dry cough for the past two days. The joint pain was initially severe enough to impair her ability to walk, though it has slightly improved, allowing her to walk up steps. The cough persists alongside the joint pain. She underwent testing for flu, COVID-19,and strep at [facility], all of which were negative. She notes that many coworkers have been ill since September, raising concern about a potential viral illness. She denies any ear pain, sinus issues, sore throat Cough is more dry No fevere She has a history of Chiari malformation and is concerned about the relation of her current symptoms to this condition. She experiences headaches at the back of her head, described as a pulsing throb, and has a history of neurological symptoms, including episodes of unresponsiveness. Neurology has suggested surgery, but she has opted against it for now. 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 Normal CSF flow studies. DIAGNOSTIC REPORTS EEG: Negative PMH: Patient Active Problem List Diagnosis History of Chiari malformation Irritable bowel syndrome without diarrhea History of leukemia S/P allogeneic bone marrow transplant (HCC) Intractable migraine without aura and without status migrainosus Abdominal bloating Lumbar degenerative disc disease Osteopenia of multiple sites Chronic headache disorder Chronic myelogenous leukemia (HCC) Other mixed anxiety disorders MDD (major depressive disorder), recurrent episode, moderate (HCC) Current Outpatient Medications Medication Sig Dispense Refill Polyethylene Glycol 3350 17 GM/SCOOP Oral Powder (MiraLax) Take 17 g by mouth as needed for Constipation. Dissolve one heaping tablespoon in 8 ounces of water or juice. Vitamin D 50 MCG (1999 UT) Oral Capsule Take 2,000 Units by mouth daily. Multivitamin Adult Oral Tablet Take by mouth. Advil Dual Action 125-250 MG Oral Tablet (Ibuprofen-Acetaminophen) Take by mouth . FLUoxetine HCl 20 MG Oral Capsule (PROzac) Take 1 Capsule by mouth in the morning. 30 Capsule 5 busPIRone HCl 10 MG Oral Tablet (Buspar) Take 1 Tablet by mouth in the morning and 1 Tablet at noonand 1 Tablet before bedtime. 60 Tablet 5 No current facility-administered medications for this visit. Past Medical History: Diagnosis Date Bone marrow transplant status (HCC) Cancer (HCC) leukemia Chiari malformation type I (HCC) Past Surgical History: Procedure Laterality Date DELIVERY LIGATE/CUT OVIDUCT(S) OH LAPS TX ECTOPIC PREG W/SALPING&/OOPHORECTOMY Review of patient's allergies indicates: Allergen Reactions Latex Levofloxacin Morphine Family History Problem Relation Name Age of Onset No Known Problems Mother Cancer Father Other (bile duct) Father No Known Problems Brother Other (aplasty anemia) Grandmother (Maternal) Other (black lung) Grandfather (Maternal) Cancer Grandmother (Paternal) breast No Known Problems Daughter Family Status Relation Status Mo Alive Fa Bro Alive MGMA MGFA PGMA PGFA Jeanmarie Alive Social History Socioeconomic History Marital status: Spouse name: Not on file Number of children: Not on file Years of education: Not on file Highest education level: Not on file Occupational History Not on file Tobacco Use Smoking status: Never Smokeless tobacco: Never Vaping Use Vaping status: Never Used Substance and Sexual Activity Alcohol use: Never Drug use: Never Sexual activity: Yes Partners: Male Other Topics Concern Not on file Social History Narrative Not on file Social Needs Financial Resource Strain: Low Risk (02/06/2024) Financial Resource Strain Do you have any trouble paying for your medications, or do you think you might in the future? (Adult - for ages 18 years and over): No Does your family have trouble paying for medicine? (Household - for ages 0-17 years): Not on file Food Insecurity: No Food Insecurity (02/06/2024) Food Insecurity Do you need food for this week? (Adult - for ages 18 years and over): No Are you able to get enough food for your family? (Household - for ages 0-17 years): Not on file Does your family need food this week? (Household - for ages 0-17 years): Not on file Do you always have enough food for your family? (Household - for ages 0-17 years): Not on file Transportation Needs: No Transportation Needs (02/06/2024) Transportation Needs Do you have trouble getting a ride to medical visits or work? (Adult - for ages 18 years and over):Never True Does your family have a hard time getting a ride to doctors visits? (Household - for ages 0-17 years): Not on file Has lack of transportation kept you from medical appointments, meetings, work, or from getting things needed for daily living? Check all that apply. (Adult - for ages 18 years and over): Not on file Do you (or your family) have trouble finding or paying for a ride (transportation)? (Household - for ages 0-17 years): Not on file Social Connections: Socially Integrated (02/06/2024) Social Connections How often do you feel lonely or isolated from those around you? (Adult - for ages 18 years and over): Sometimes Housing Stability: Low Risk (02/06/2024) Housing Stability Do you currently live in a [place] facility or have no steady place to sleep at night? (Adult - for ages 18 years and over): No Do you think you are at risk of becoming homeless? (Adult - for ages 18 years and over): No Does your family worry about paying for your home or becoming homeless? (Household - for ages 0-17 years): Not on file Are you homeless or worried that you might be in the future? (Adult - for ages 18 years and over): Not on file Are you (or your family) homeless or worried that you might be in the future? (Household - for ages0-17 years): Not on file Objective BP 120/80 | Pulse 72 | Temp 97.2 F (36.2 C) | Resp 18 | Ht 5' 4" (1.626 m) | Wt 182 lb 9.6 oz (82.8 kg) | BMI 31.34 kg/m | BSA 1.93 m ASSESSMENT/PLAN: Arthralgia, unspecified joint (Primary) - CBC WITH WBC DIFFERENTIAL; Future; Expected date: 12/23/2024 - COMPREHENSIVE METABOLIC PANEL; Future; Expected date: 12/23/2024 - CRP (INFLAMMATORY MARKER); Future; Expected date: 12/23/2024 - ERYTHROCYTE SEDIMENTATION RATE (ESR); Future; Expected date: 12/23/2024 - RHEUMATOID FACTOR; Future; Expected date: 12/23/2024 - CYCLIC CITRULLINATED PEPTIDE IGG ANTIBODY; Future; Expected date: 12/23/2024 - HLA B27 ANTIGEN, FLOW CYTOMETRY; Future; Expected date: 12/23/2024 - RESPIRATORY PATHOGEN PANEL, PCR; Future; Expected date: 12/23/2024 - RESPIRATORY PATHOGEN PANEL, PCR Viral respiratory illness - RESPIRATORY PATHOGEN PANEL, PCR; Future; Expected date: 12/23/2024 - RESPIRATORY PATHOGEN PANEL, PCR Chronic myelogenous leukemia (HCC) S/P allogeneic bone marrow transplant (HCC) Moderate episode of recurrent major depressive disorder (HCC) History of Chiari malformation Check-out note: Follow up with pcp in [place] Assessment & Plan Acute Viral Illness Presents with joint pain, dry cough, headache, shortness of breath, and chest tightness for two days. Negative for flu, COVID-19, and strep. Likely viral etiology given acute onset and systemic symptoms. No joint redness or swelling. Lungs clear on examination. Discussed symptomatic care including rest, hydration, and potential use of steroids. Patient declined steroids. - Perform viral swab - Order blood work for inflammatory and autoimmune markers - Advise rest and hydration - Consider steroids if symptoms persist Chiari Malformation Symptoms include headaches, hoarseness, trouble swallowing, and episodes of unresponsiveness. Neurology suggested surgery, but patient declined due to concerns about efficacy. Symptoms mild but worsening over four years. Previous MRIs and EEGs negative for seizures. Discussed surgery as an option but not guaranteed to resolve symptoms. Patient prefers conservative management. - Review medical history - with Neurology as scheduled - Evaluate medication options for headache management Rash on Breast Intermittent itchy rash, possibly due to allergic reaction or pressure from bra. No pain or concerning features on examination. Discussed monitoring and ensuring proper bra fit. - Monitor rash - Advise on proper bra fit to reduce pressure Follow-up - Review chart for additional insights - Follow up if new information or treatment options identified. -continue all current medications -patient appears to have pretty significant anxiety and depression, she is following with Psychology, appears to have an appointment in the future with Psychiatry, unsure if some of her symptoms could be anxiety induced as well Lynnette Hardy DO All, some, or none of the text in this note may have been generated using an ambient documentation service, depending on the visit type or situation. If the ambient documentation service was used, I discussed the use of a device to record and summarize our discussion today. All persons present during the encounter consented to its use. documented in this encounter Nursing Notes * Brigitte Díaz LPN - 12/23/2024 7:14 AM EST Seen at [facility] on with cough,late onset of multiple joint pain. No medication given at the time. Flu, Strep all came back neg. documented in this encounter Plan of Treatment Upcoming Encounters Date Type Department Care Team (Late st Contact Info) Description 01/04/2025 7:00 AM EST Office Visit Neurology [facility] [address] [facility] [place] [address] Lili Casper PA-C [address] [facility] [place] [id number] Pending Results Name Type Priority Associated Diagnoses [...] Arthralgia, unspecified joint 12/23/2024 7:46 AM EST RESPIRATORY PATHOGEN PANEL, PCR Lab Routine Arthralgia, unspecified joint Viral respiratory illness 12/23/2024 7:46 AM EST Scheduled Orders Name Type Priority Associated Diagnoses Orde r Schedule CBC WITH WBC DIFFERENTIAL Lab Routine Arthralgia, unspecified joint Expected: 12/23/2024, Expires: 12/23/2025 COMPREHENSIVE METABOLIC PANEL Lab Routine Arthralgia, unspecified joint Expected: 12/23/2024, Expires: 12/23/2025 CRP (INFLAMMATORY MARKER) Lab Routine Arthralgia, unspecified joint Expected: 12/23/2024, Expires: 12/23/2025 ERYTHROCYTE SEDIMENTATION RATE (ESR) Lab Routine Arthralgia, unspecified joint Expected: 12/23/2024, Expires: 12/23/2025 RHEUMATOID FACTOR Lab Routine Arthralgia, unspecified joint Expected: 12/23/2024, Expires: 12/23/2025 CYCLIC CITRULLINATED PEPTIDE IGG ANTIBODY Lab Routine Arthralgia, unspecified joint Expected: 12/23/2024, Expires: 12/23/2025 HLA B27 ANTIGEN, FLOW CYTOMETRY Lab Routine Arthralgia, unspecified joint Expected: 12/23/2024, Expires: 12/23/2025 RESPIRATORY PATHOGEN PANEL, PCR Lab Routine Arthralgia, unspecified joint Viral respiratory illness Expected: 12/23/2024 (Approximate), Expires: 12/23/2025 Health Maintenance Due Date Last Done Comments [...] this encounter Visit Diagnoses Diagnosis Arthralgia, unspecified joint- Primary Viral respiratory illness Unspecified viral infection, in conditions classified elsewhere and of unspecified site Rash and nonspecific skin eruption Rash and other nonspecific skin eruption History of Chiari malformation Chronic myelogenous leukemia (HCC) Chronic myeloid leukemia, without mention of having achieved remission S/P allogeneic bone marrow transplant (HCC) Bone marrow replaced by transplant Moderate episode of recurrent major depressive disorder (HCC) documented in this encounter Care Teams Marketing Research Intern Relationship Specialty Start Date End Date Dianna Cross DO [address] [place] [address] PCP - General Family Medicine 12/23/24 documented as of this encounter
--- OUTSIDE RECORDS SUMMARY | 2025-02-09 04:08 | External Medical Summary | Summary of Care ---
Author Name Unknown Organization [facility] Address [address] [place] [address] Phone [phone] Care Team Providers Care Commercial Construction Estimator Name Role Phone Dianna Cross DO Primary Care Provider Reason for Visit * Reason Onset Date Comments Test Results 12/24/2024 Encounter Details Date Type Department Care Team (Late st Contact Info) Description 12/24/2024 Telephone Family Practice [facility] [address] [facility] [place] [address] Dianna Cross DO [address] [facility] [place] [address] Test Results Allergies Active Allergy Reactions Criticality Noted Date Comments Latex 01/23/2015 Levofloxacin 01/23/2015 Morphine 01/23/2015 documented as of this encounter (statuses as of 12/27/2024) Medications Polyethylene Glycol 3350 17 GM/SCOOP Oral [...] for 2 days 30 Tablet 5 Active documented as of this encounter (statuses as of 12/27/2024) Active Problems Problem Noted Date Diagnosed Date [...] as of this encounter (statuses as of 12/27/2024) Resolved Problems Problem Noted Date Diagnosed Date Resolved Date Headache 02/08/2021 02/08/2021 Lumbago 02/08/2021 02/08/2021 Urge incontinence 02/08/2021 02/08/2021 Overweight (BMI 25.0-29.9) 02/08/2021 0 02/22/2022 documented as of this encounter (statuses as of 12/27/2024) Immunizations Name Administration Dates Next Due COVID-19 mRNA, LNP-s, No Pre serve, 2-Dose Series ([facility]) 01/06/2021,12/16/2020 Seasonal Influenza Virus Vac cine, Unspecified [...] as of this encounter Miscellaneous Notes * Addendum Note - Lynnette Hardy DO - 12/27/2024 11:40 AM ESTAddended by: LYNNETTE HARDY on: 12/27/2024 11:40 AM Modules accepted: Orders * Telephone Encounter - Lynnette Hardy DO - 12/27/2024 11:40 AM EST Sent to pharmacy * Telephone Encounter - Iva Kunz OSA - 12/27/2024 11:09 AM EST Pt called in asking if Dr Hardy can in fact send in the steroids . She has changed her mind . Please send to [facility] . Please call patient so she know ws to have someone spanish moss picker * Telephone Encounter - Kathrin Nolasco LPN - 12/24/2024 1:04 PM EST Pt updated, verbalized understanding * Telephone Encounter - Lynnette Hardy DO - 12/24/2024 11:00 AM EST There is no specific treatment for rsv Supportive care, with rest, fluids, and she can continue advil Symptoms should resolve within 1-2 weeks Most contagious period is usually 3-7 days at onset of symptoms * Telephone Encounter - Lucero Vo LPN - 12/24/2024 10:05 AM EST Pt is calling in regards yesterday's lab results. Saw that she has RSV. Would like to know how long she should be off of work? What should pt take for her symptoms (headache, joint pain, dry cough)? States that they are a little worse than yesterday. Is taking Advil dual action 3 tablets every 8 hours. Pharmacy selected. Please advise. * Telephone Encounter - Arline Brandon OSA - 12/24/2024 10:02 AM EST Reason for patient's call: Patient asking to speak to nurse about test results Caller was transferred to Lucero at the nurse line. documented in this encounter Plan of Treatment Upcoming Encounters Date Type Department Care Team (Late st Contact Info) Description 01/04/2025 7:00 AM EST Office Visit Neurology [facility] [address] [place] [address] Lili Casper PA-C [address] [place] [phone] Health Maintenance Due Date Last Done Comments [...] Not on filedocumented as of this encounter Additional Health Concerns Infection Onset Date Last Indicated Resolved Time Respiratory Rule-Out 12/23/2024 12/23/2024 025 12:17 AM EST RSV 12/23/2024 12/23/2024 documented as of this encounter Care Teams Commercial Construction Estimator Relationship Specialty Start Date End Date Dianna Cross DO [address] [place] [address] PCP - General Family Medicine 12/23/24 documented as of this encounter
--- OUTSIDE RECORDS SUMMARY | 2025-02-09 04:08 | External Medical Summary ---
Author Name Unknown Address Unknown Organization [id number]:LABORATORY [facility] [place] - [address] [facility] [address] Laboratory Report Ordering Provider Test Date Status BRIDGETTE PAUL 12/23/2024 07:46:07 Final Observation Date Value Abnormality Reference (Units ) Status Cyclic citrullinated peptide IgG Ab [Presence] in Serum 12/23/2024 07:46:07 Negative Negative Final Cyclic citrullinated peptide IgA+IgG Ab [Units/volume] in Serum or Plasma by Immunoassay 12/23/2024 07:46:07 0.8 <7 (U/mL) Final Performing Location LABORATORY [facility] [place] - [address] [facility] [address]
--- OUTSIDE RECORDS SUMMARY | 2025-02-09 04:08 | External Medical Summary ---
Author Name Unknown Address Unknown Organization [id number]:[facility] [place] [address] [facility] [place] [address] Laboratory Report Ordering Provider Test Date Status BRIDGETTE PAUL 12/23/2024 07:46:07 Final Observation Date Value Abnormality Reference (Units ) Status BUN 12/23/2024 07:46:07 13 6-20 (mg/dL) Final Creatinine 12/23/2024 07:46:07 0.9 0.5-1.0 (mg/dL) Final Glomerular filtration rate/1.73 sq M.predicted [Volume Rate/Area] in Serum, Plasma or Blood by Creatinine-based formula (CKD-EPI) 12/23/2024 07:46:07 75 >=60 (mL/min) Final eGFR is calculated based on the CKD-EPI 2020 equation. Sodium 12/23/2024 07:46:07 140 135-146 (m mol/L) Final Potassium 12/23/2024 07:46:07 4.4 3.5-5.1 (m mol/L) Final Cl 12/23/2024 07:46:07 100 98-107 (mm ol/L) Final CO2 12/23/2024 07:46:07 24 22-32 (mmo l/L) Final Anion gap 12/23/2024 07:46:07 16 Above high normal 7- 15 (mmol/L) Final Glucose 12/23/2024 07:46:07 99 70-120 (mg /dL) Final Albumin 12/23/2024 07:46:07 4.6 3.8-5.0 (g /dL) Final AST (Aspartate aminotransferase) 12/23/2024 07:46:07 23 10-35 (U/L) Fin al Alk Phos 12/23/2024 07:46:07 76 35-130 (U/ L) Final Bilirubin, Total 12/23/2024 07:46:07 0.4 <=1 .2 (mg/dL) Final Calcium 12/23/2024 07:46:07 9.7 8.4-10.2 ( mg/dL) Final Protein 12/23/2024 07:46:07 7.4 6.0-8.3 (g /dL) Final ALT (Alanine aminotransferase) 12/23/2024 07:46:07 25 10-35 (U/L) Stu strong Performing Location [facility] [place] - [address] [facility] [address]
--- OUTSIDE RECORDS SUMMARY | 2025-02-09 04:08 | External Medical Summary | Summary of Care ---
Author Name Unknown Organization [facility] Address [address] [facility] [place] [address] Phone [phone] Care Team Providers Care Paver Installer Name Role Phone Dianna Cross Ad[place]ike Primary Care Provider Reason for Visit * Reason Comments Follow Up Headache Encounter Details Date Type Department Care Team (Late st Contact Info) Description 01/04/2025 7:00 AM EST Office Visit Neurology [facility] [address] [place] [address] Lili Casper PA-C [address] [facility] [place] [address] Chiari I malformation (HCC)*; Medication overuse headache; Anxiety Allergies Active Allergy Reactions Criticality Noted Date Comments Latex 01/23/2015 Levofloxacin 01/23/2015 Morphine 01/23/2015 documented as of this encounter (statuses as of 01/04/2025) Medications Polyethylene Glycol 3350 17 GM/SCOOP Oral Powder (MiraLax)Indicati ons:Abdominal bloating Take 17 g by mouth as needed for Constipation. Dissolve one heaping tablespoon in 8 ounces of water or juice. Active Vitamin D 50 MCG (1999 UT) [...] 120 MG/ML Subcutaneous Solution Auto-injector (Emgality) Inject 2mL under the skin first month of treatment. 2 mL 5 Active Galcanezumab-gnlm 120 MG/ML Subcutaneous Solution Auto-injector (Emgality) Inject 1mL under the skin monthly after first month of treatment. 1 mL 5 5 Active SUMAtriptan Succinate 50 MG Oral Tablet (Imitrex) Take 1 tablet at onset of migraine. May take 1 additional tablet in 2 hours if needed. Do not exceed 2 tablets in 24 hours. 10 Tablet 4 5 Active documented as of this encounter (statuses as of 01/04/2025) Active Problems Problem Noted Date Diagnosed Date [...] as of this encounter (statuses as of 01/04/2025) Resolved Problems Problem Noted Date Diagnosed Date Resolved Date Headache 02/08/2021 02/08/2021 Lumbago 02/08/2021 02/08/2021 Urge incontinence 02/08/2021 02/08/2021 Overweight (BMI 25.0-29.9) 02/08/2021 0 02/22/2022 documented as of this encounter (statuses as of 01/04/2025) Immunizations Name Administration Dates Next Due COVID-19 mRNA, LNP-s, No Pre serve, 2-Dose Series ([employer]) 01/06/2021,12/16/2020 Seasonal Influenza Virus Vac cine, Unspecified [...] AM EDT documented as of this encounter Progress Notes * Lili Casper PA-C - 01/04/2025 7:00 AM EST HISTORY & PHYSICAL EXAMINATION - NEUROLOGY Name: Aline Sharif Date: 01/03/2025 Time: 1:57 PM Chief Complaint Patient presents with Follow Up Headache SUBJECTIVE: Aline Sharif is a 49 year old female with history of CML s/p bone marrow transplant(2002), anxiety, panic attacks who presents today for follow- up of Chiari malformation and migraine. Evaluated in August 2023 by Neurosurgery regarding Chiari malformation: "mild Chiari malformation with normal CSF flow studies. Even though her cine flow is normal, we discussed that we would offer surgical intervention. We had a lengthy discussion that some of her symptoms are consistent with a Chiari malformation, such as Valsalva induced headaches, which we would expect to improve with Chiari decompression. We also discussed other symptoms associated with Chiari malformation that may improve with surgery; however we cannot provide the same guarantee that these symptoms will improve as it is not clearly evident that the etiology of these symptoms are due to the Chiari malformation." She was last seen in January 2024 for recurrent episodes suggestive of panic attacks. Established with Psychology and Psychiatry. Today states headaches are affecting her daily life. She has a dull daily occipital headache which escalates to a throbbing severe headache at least once daily. Headache is exacerbated by coughing, sneezing or bearing down. When severe, headache is accompanied by nausea, vomiting and blurry vision.Will have difficulty concentrating. Pain is alleviated by bending her head forward. Also notes episodes of difficulty swallowing. She feels overall that her memory is poor. She is taking a combination of acetaminophen and ibuprofen multiple times daily. This is ongoing for years. Has tried occipital pain injections before without benefit. Recently evaluated by an eye doctor and got new glasses. Sleep is poor. Has a new job which is lessstressful. Hydrates well. Drinks 1-2 cups of coffee daily. 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 2 mL 0 Galcanezumab-gnlm 120 MG/ML Subcutaneous Solution Auto-injector (Emgality) Inject 1mL under the skin monthly after first month of treatment. 1 mL 5 SUMAtriptan Succinate 50 MG Oral Tablet (Imitrex) Take 1 tablet at onset of migraine. May take 1 additional tablet in 2 hours if needed. Do not exceed 2 tablets in 24 hours. 10 Tablet 4 Polyethylene Glycol 3350 17 GM/SCOOP Oral Powder (MiraLax) Take 17 g by mouth as needed for Constipation. Dissolve one heaping tablespoon in 8 ounces of water or juice. Vitamin D 50 MCG (2000 UT) Oral Capsule Take 2,000 Units by [...] 1 Tablet before bedtime. 60 Tablet 5 predniSONE 10 MG Oral Tablet (Deltasone) Take 5 tabs for 2 days, 4 tabs for 2 days, 3 tabs for 2 days, 2 tabs for 2 days 1 tab for 2 days 30 Tablet 0 No current facility-administered medications for this visit. Family History: Family History Problem Relation Name Age of Onset No Known Problems Mother Cancer Father Other (bile duct) Father No Known Problems Brother Other (aplasty anemia) Grandmother (Maternal) Other (black lung) Grandfather (Maternal) Cancer Grandmother (Paternal) breast No Known Problems Daughter SOCIAL HISTORY: Social History Tobacco Use Smoking status: Never Smokeless tobacco: Never Vaping Use Vaping status: Never Used Substance Use Topics Alcohol use: Never Drug use: Never REVIEW OF SYSTEMS: As above OBJECTIVE: Physical Examination: There were no vitals taken for this visit. General appearance: healthy, alert, no distress Physical Exam: Constitutional: Appearance normally developed,well nourished,no deformities,well groomed Head and face: No tenderness over TERELL normocephalic,atraumatic Respiratory: normal effort,clear to auscultation Cardiovascular: normal heart sounds and regular rhythm Psychiatric: normal judgement and insight,normal mood,normal affect NEUROLOGIC EXAMINATION: Mental Status Exam: alert,oriented to time, place, person,normal recent memory,normal remote memory,normal attention span,normal concentration,normal language,normal fund of knowledge Cranial Nerves: CN 2,3 - PERRL CN 3, 4, 6 - Extra-ocular Movements Intact,no nystagmus CN 5 - Facial sensation intact and equal bilaterally CN 7 - no facial assymetry CN 8 - hearing grossly intact CN 9, 10, 12 - tongue and uvula midline CN 11- good shoulder shrug Coordination: normal to xiuayy-qziq-jggeny, otkr-sspz-zehs, and rapid alternating movements Gait/station: Gait appears to be normal, no pathological gaits. Muscle exam: Arm Right Left Leg Right Left Deltoid 5/5 5/5 Iliopsoas 5/5 5/5 Biceps 5/5 5/5 Quads 5/5 5/5 Triceps 5/5 5/5 Reflexes: Biceps BR Patellar Achilles Plantars Right 3 3 3 1 Mute Left 3 3 3 1 Mute Sensation: Intact light touch and vibration LABORATORY: Results for orders placed or performed in visit on 12/23/24 CBC Result Value Ref Range WBC 5.31 4.00 - 10.80 K/uL RBC 4.32 3.85 - 5.15 M/uL HGB 13.5 12.0 - 15.3 g/dL HCT 40.4 36.0 - 45.2 % MCV 93.5 81.5 - 97.5 fL MCH 31.3 27.0 - 34.0 pg MCHC 33.4 32.0 - 36.0 g/dL RDW 12.3 11.5 - 15.5 % PLT 279 140 - 400 K/uL MPV 9.7 6.6 - 11.1 fL nRBCs 0 <=0 /100 WBCs Results for orders placed or performed in visit on 02/22/22 VITAMIN B12 Result Value Ref Range Vitamin B12 353 232-1,245 pg/mL Results for orders placed or performed in visit on 02/22/22 FOLIC ACID Result Value Ref Range Folic Acid 10.9 >4.5 ng/mL Review of prior Studies: MRI Brain Without Contrast 02/14/23 Impression 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 Normal CSF flow studies. Narrative CLINICAL HISTORY: 47-year-old female, evaluate for Chiari malformation. COMPARISON: None TECHNIQUE: Multiplanar multisequence MR examination of the brain was performed without intravenous contrast. FINDINGS: There is cerebellar tonsillar ectopia which measures up to 8 mm relative to the foramen magnum. There is normal CSF flow dorsal and ventral to the cervicomedullary junction and around the cerebellar tonsils. There is no abnormal restricted diffusion to indicate an acute infarct. There are a few scattered T2 FLAIR hyperintensities in the left insula and subcortical white matter which are nonspecific although typically attributed to chronic small vessel ischemic disease. There is no abnormal susceptibility to suggest the presence of blood products. The ventricles are normal in size and configuration. The basal cisterns are patent. There is no mass effect or midline shift. Flow void signal is present in all the major central intracranial arteries and dural sinuses. The orbits, paranasal sinuses and mastoid air cells are normal. The corpus callosum, pituitary and sella are normal. The craniocervical junction is normal. The marrow signal is normal. IMPRESSION: Aline Sharif is a 49 year old female with history of Chiari malformation who presents for follow- up of headaches. Daily dull occipital pain which escalates to severe throbbing pain with Valsalva maneuvers is typical for Chiari headache. Likely that hoarseness and intermittent difficulty swallowing is also related. Reflexes today are mildly brisk. Offered referral back to Neurosurgery to discuss surgical options. She prefers to avoid surgery at this time. Very possible that typical migraine medications will not be effective for her headaches. She was on topiramate in the past, would avoid given her current cognitive concerns. Avoid amitriptyline due to psychiatric polypharmacy and her personal concern forweight gain. She is a good candidate for CGRP inhibitors. PLAN: Start Emgality monthly for prevention Sumatriptan 50mg PRN for rescue Decrease OTC medications < 3x/ week Monitor cognitive changes; may improve with improvement of pain. Consider reimaging. Consider swallow study Follow up in 4 months or sooner if needed. I spent a total of 40 minutes on the date of service in preparation, delivery, and documentation of the care provided to Aline Sharif. Dr. Edwards available for direct consultation. Lili Casper PA-C, Neurology [address] [place] [address] 01/04/25 7:45 AM documented in this encounter Plan of Treatment Upcoming Encounters Date Type Department Care Team (Late st Contact Info) Description 05/24/2025 7:00 AM EDT Office Visit Neurology [facility] [address] [facility] [place] [address] Lili Casper PA-C [address] [place] [address] Health Maintenance Due Date Last Done Comments [...] as of this encounter Visit Diagnoses Diagnosis Chiari I malformation (HCC)- Primary Compression of brain Medication overuse headache Drug induced headache, not elsewhere classified Anxiety Anxiety state, unspecified documented in this encounter Additional Health Concerns Infection Onset Date Last Indicated Resolved Time RSV 12/23/2024 12/23/2024 documented as of this encounter Care Teams Paver Installer Relationship Specialty Start Date End Date Dianna Cross DO [address] [place] [address] PCP - General Family Medicine 12/23/24 documented as of this encounter
--- OUTSIDE RECORDS SUMMARY | 2025-02-09 04:08 | External Medical Summary ---
Author Name Unknown Address Unknown Organization K01:[facility] [place] [address] [place] [address] Laboratory Report Ordering Provider Test Date Status BRIDGETTE PAUL 12/23/2024 07:46:07 Final Observation Date Value Abnormality Reference (Units ) Status Rheumatoid Factor 12/23/2024 07:46:07 11 <1 4 (IU/mL) Final Performing Location [facility] - [address] [place] [address]
--- OUTSIDE RECORDS SUMMARY | 2025-02-09 04:08 | External Medical Summary | Summary of Care ---
Author Name Unknown Organization [facility] Address [address] [place] [address] Phone [phone] Care Team Providers Care Nursing Admin Name Role Phone Dianna Cross DO Primary Care Provider Reason for Visit * Reason Onset Date Comments Test Results 12/24/2024 Encounter Details Date Type Department Care Team (Late st Contact Info) Description 12/24/2024 Telephone Family Practice [facility] [address] [facility] [place] [address] Dainna Cross DO [address] [facility] [place] [address] Test Results Allergies Active Allergy Reactions Criticality Noted Date Comments Latex 01/23/2015 Levofloxacin 01/23/2015 Morphine 01/23/2015 documented as of this encounter (statuses as of 12/24/2024) Medications Polyethylene Glycol 3350 17 GM/SCOOP Oral [...] 1 Tablet before bedtime. 60 Tablet 5 Active documented as of this encounter (statuses as of 12/24/2024) Active Problems Problem Noted Date Diagnosed Date [...] as of this encounter (statuses as of 12/24/2024) Resolved Problems Problem Noted Date Diagnosed Date Resolved Date Headache 02/08/2021 02/08/2021 Lumbago 02/08/2021 02/08/2021 Urge incontinence 02/08/2021 02/08/2021 Overweight (BMI 25.0-29.9) 02/08/2021 0 02/22/2022 documented as of this encounter (statuses as of 12/24/2024) Immunizations Name Administration Dates Next Due COVID-19 mRNA, LNP-s, No Pre serve, 2-Dose Series ([facility]) 01/06/2021,12/16/2020 Seasonal Influenza Virus Vac cine, Unspecified [...] encounter Miscellaneous Notes * Telephone Encounter - Kathrin Nolasco LPN [...] about test results Caller was transferred to [facility] at the nurse line. documented in this encounter Plan of Treatment Upcoming Encounters Date Type Department Care Team (Late st Contact Info) Description 01/04/2025 7:00 AM EST Office Visit Neurology [facility] [place] [address] [facility] [place] [address] Lili Casper PA-C [address] [place] [address] Health Maintenance Due Date Last Done Comments [...] 2024 09/15/2019, 09/15/2019, 10/17/2010 Mammogram 08/22/2024 08/22/2023, 1211/2019, 10/09/2017, Additional history exists Diabetes Screening 12/23/2027 [...] documented as of this encounter Care Teams Nursing Admin Relationship Specialty Start Date End Date Dianna Cross DO [address] [place] [address] PCP - General Family Medicine 12/23/24 documented as of this encounter
--- OUTSIDE RECORDS SUMMARY | 2025-02-09 04:08 | External Medical Summary ---
Author Name Unknown Address Unknown Organization K01:[place] [place] [facility] [address] [facility] [address] [facility] [address] Laboratory Report Ordering Provider Test Date Status BRIDGETTE PAUL 12/23/2024 07:46:07 Final HLA-B27 Antigen is found in 6-8% of Caucasians,in 3-4% of -Americans and in 1% of Asians. Observation Date Value Abnormality Reference (Units ) Status HLA-B27 [Presence] by Flow cytometry (FC) 12/23/2024 07:46:07 Negative Negative Final Performing Location [facility] [place] [facility] [address]
--- OUTSIDE RECORDS SUMMARY | 2025-02-09 04:08 | External Medical Summary ---
Author Name Unknown Address Unknown Organization K01:[facility]ATORY [facility] - [address] [place] [address] Laboratory Report Ordering Provider Test Date Status BRIDGETTE PAUL 12/23/2024 07:46:07 Final Observation Date Value Abnormality Reference (Units ) Status CRP, low-sensitivity 12/23/2024 07:46:07 55 Above high normal <=5 (mg/L) Final Performing Location LABORATORY [facility] - [address] [place] [address]
--- OUTSIDE RECORDS SUMMARY | 2025-02-09 04:08 | External Medical Summary ---
Author Name Unknown Address Unknown Organization [id number]:LAB[facility]ATORY [facility] [place] - [address] [facility] [id number] Laboratory Report Ordering Provider Test Date Status HUMBERTOANGELES 12/23/2024 07:46:07 Final Observation Date Value Abnormality Reference (Units ) Status SYNC LEUKOCYTES IN BLOOD BY AUTOMATED COUNT 12/23/2024 07:46:07 5.31 4.00-10.80 (K/uL) Final Segs 12/23/2024 07:46:07 66.8 40.0-75.0 (%) Final Lymphs % 12/23/2024 07:46:07 19.2 18.0-42.0 (%) Final Monos 12/23/2024 07:46:07 11.7 Above high normal 1.0-11.0 (%) Final Eosinophils 12/23/2024 07:46:07 1.5 0.0-6.0 (%) Final Basos 12/23/2024 07:46:07 0.8 0.0-2.0 (%) Final Immature Granulocyte, Percent 12/23/2024 07:46:07 0.0 0.0-2.0 (%) Final Absolute Segs 12/23/2024 07:46:07 3.55 1.80-7.70 (K/uL) Final Lymphs, absolute 12/23/2024 07:46:07 1.02 1.00-4.80 (K/ul) Final Monos, Abs 12/23/2024 07:46:07 0.62 0.00-1.10 (K/uL) Final Eos, Abs 12/23/2024 07:46:07 0.08 0.00-0.70 (K/uL) Final Basos, Abs 12/23/2024 07:46:07 0.04 0.00-0.20 (K/uL) Final Immature Granulocytes, Number 12/23/2024 07:46:07 0.00 0.00-0.20 (K/uL) Final Performing Location [facility]ATORY [facility] - [address] [facility] [id number]
--- OUTSIDE RECORDS SUMMARY | 2025-02-09 04:08 | External Medical Summary | Summary of Care ---
Author Name Unknown Organization [facility] Address [address] [place] [address] Phone [phone] Care Team Providers Care Endodontic Assistant Name Role Phone Dianna Cross DO Primary Care Provider Reason for Visit * Reason Onset Date Comments Test Results 12/24/2024 Encounter Details Date Type Department Care Team (Late st Contact Info) Description 12/24/2024 Telephone Family Practice [facility] [address] [facility] [place] [address] Dianna Cross DO [address] [facility] [place] [address] Test Results Allergies Active Allergy Reactions Criticality [...] mRNA, LNP-s, No Pre serve, 2-Dose Series ([employer] 01/06/2021,12/16/2020 Seasonal Influenza Virus Vac cine, Unspecified [...] changed her mind . Please send to [facility] . Please call patient so she know ws to have someone pick up and delivery driver * Telephone Encounter - Kathrin Nolasco LPN [...] 01/04/2025 7:00 AM EST Office Visit Neurology [facility] [address] [place] [address] Lili Casper PA-C [address] [phone] Health Maintenance Due Date Last Done Comments [...] documented as of this encounter Care Teams Endodontic Assistant Relationship Specialty Start Date End Date Dianna Cross DO [address] [place] [address] PCP - General Family Medicine 12/23/24 documented as of this encounter
--- OUTSIDE RECORDS SUMMARY | 2025-02-09 04:08 | External Medical Summary | Summary of Care ---
Author Name Unknown Organization [facility] Address [address] [place] [address] Phone [phone] Care Team Providers Care Molded Candles Wicker Name Role Phone Dianna Cross DO Primary Care Provider Reason for Visit * Reason Onset Date Comments Test Results 12/24/2024 Encounter Details Date Type Department Care Team (Late st Contact Info) Description 12/24/2024 Telephone Family Practice [facility] [address] [facility] [place] [address] Dianna Cross DO [address] [facility] [place] [address] Test Results Allergies Active Allergy Reactions Criticality [...] mRNA, LNP-s, No Pre serve, 2-Dose Series ([employer]) 01/06/2021,12/16/2020 Seasonal Influenza Virus Vac cine, Unspecified [...] about test results Caller was transferred to [facility] at the nurse line. documented in this encounter Plan of Treatment Upcoming Encounters Date Type Department Care Team (Late st Contact Info) Description 01/04/2025 7:00 AM EST Office Visit Neurology [facility] [place] [address] [facility] [place] [address] Lili Casper PA-C [address] [place] [phone] Health Maintenance Due Date Last Done Comments [...] documented as of this encounter Care Teams Molded Candles Wicker Relationship Specialty Start Date End Date Dianna Cross DO [address] [place] [address] PCP - General Family Medicine 12/23/24 documented as of this encounter
--- OUTSIDE RECORDS SUMMARY | 2025-02-09 04:08 | External Medical Summary | Continuity of Care Document ---
Author Name Unknown Organization [address] Address [address] [place], [place] [address] Care Team Providers Care Biomedical Technician Name Role Phone Dianna Cross Primary Care Physician [phone] Encounter [facility] [id number] Date(s): 01/21/25 - 01/21/[address] [address] [phone] Encounter Diagnosis Screening mammogram for breast cancer(Discharge Diagnosis) - 01/21/25 Colon cancer screening(Discharge Diagnosis) - 01/21/25 CRP elevated(Discharge Diagnosis) - 01/21/25 Elevated sed rate(Discharge Diagnosis) - 01/21/25 Need for vaccination(Discharge Diagnosis) - 01/21/25 Body mass index [BMI] 29.0-29.9, adult(Discharge Diagnosis) - 01/21/25 Skin cancer screening(Discharge Diagnosis) - 01/21/25 S/P allogeneic bone marrow transplant(Discharge Diagnosis) - 01/21/25 Irritable bowel syndrome without diarrhea(Discharge Diagnosis) - 01/21/25 Lumbar disc disease(Discharge Diagnosis) - 01/21/25 Chiari malformation type I(Discharge Diagnosis) - 01/21/25 Intractable migraine without aura and without status migrainosus(Discharge Diagnosis) - 01/21/25 Chronic headache disorder(Discharge Diagnosis) - 01/21/25 Osteopenia of multiple sites(Discharge Diagnosis) - 01/21/25 Medication overuse headache(Discharge Diagnosis) - 01/21/25 CML in remission(Discharge Diagnosis) - 01/21/25 MDD (major depressive disorder), recurrent episode(Discharge Diagnosis) - 01/21/25 KAELA (generalized anxiety disorder)(Discharge Diagnosis) - 01/21/25 Discharge Disposition: Home or Self Care Attending Physician: DO Torre Allison B Referring Physician: DO Torre Allison B Encounter Type: Clinic Allergies, Adverse Reactions, Alerts Substance Criticality Severity Reaction Reaction Severity Status morphine hives Active Levaquin hives Active Latex rash Active oxyCODONE severe headaches Act elisabet Assessment and Plan Extracted from: Title:Office Visit Note Author:DO Torre Allis on B Date:01/21/25 1.Irritable bowel syndrome without diarrhea Stable. Follow-up with GI. 2.Lumbar disc disease Stable. Continue to monitor. 3.Chiari malformation type I Follow up with Nuerology and neurosurgery as scheduled. Patient reports her headaches are worsening, and could be secondary toChiari. Recommend surgery. 4.Osteopenia of multiple sites DEXA scan pending. Vitamin D level pending. 5.Intractable migraine without aura and without status migrainosus Continue Emgality per neurology. Sumatriptan as needed. 6.Chronic headache disorder Continue Emgality per neurology. Sumatriptan as needed. 7.Medication overuse headache Continue to follow with neurology. Headachehas improved slightly, but follow-up with neurosurgery. 8.CML in remission Stable. Continue to follow-up with hematology. She is due in January. 9.S/P allogeneic bone marrow transplant Stable. Continue to follow-up withhematology. She is due in January. 10.MDD (major depressive disorder), recurrent episode Stable. Continue Prozac. 11.CRP elevated Elevated CRP and suspect secondary to RSV infection. RepeatCRP. 12.Elevated sed rate Repeatsed rate. Suspect secondary to RSVas this was obtained when she was ill. 13.KAELA (generalized anxiety disorder) Stable on Prozac. Patient does not wish to follow with counseling. 14.Screening mammogram for breast cancer Patient overdue for mammogram. Mammogram ordered. 15.Colon cancer screening Patient reportscolonoscopy approximately 5 years ago at [facility] with Dr. Duncan. Would like to obtain records. Will send a referral over, as it may have been longer?. 16.Need for vaccination Recommend Shingrix, Tdap, and flu shot. Sent Tdap to the pharmacy. 17.Body mass index [BMI] 29.0-29.9, adult BMI 29. Patient does not qualify for GLP-1 today. She will look into coverage. She willhave blood work to determine if she has any underlyingdiabetes. 18.Skin cancer screening Referral to Dermatology. Need previous records from GI and Gynecology. Fast blood work pending. Return to the officein 3 months or sooner as needed. Patient concerned about weight gain. She does not qualify for GLP-1 due to BMI is less than 30. She tried Contrave in the past and had side effects. She had been on Adipex without much relief. Blood work pending. May need to follow-up with GI nutrition. Immunizations Given and Recorded Vaccine Date Status Refusal Reason SARS-CoV-2 (COVID-19) mRNA BNT-162b2 vax 01/06/21 Recorded SARS-CoV-2 (COVID-19) mRNA BNT-162b2 vax 12/16/20 Recorded Medications Advil Dual Action With Acetaminophen Start: 03/15/22 1:00:00 PM EDT, PRN: as needed for pain Start Date: 03/15/22 Status: Ordered Repeat number: 1 Boostrix (Tdap vaccine) intramuscular suspension Start: 01/21/25 10:17:00 AM EST, 0.5 mL, IM, ONCE, Disp# 0.5 mL, Pharmacy: [id number] Start Date: 01/21/25 Status: Ordered Quantity: 0.5 Unit: mL Repeat number: 1 busPIRone Start: 02/18/24 2:33:00 PM EDT, 10 mg =, PO, tid Start Date: 02/18/24 Status: Ordered Repeat number: 1 FLUoxetine Start: 02/18/24 2:33:00 PM EDT, 20 mg =, PO, Daily Start Date: 02/18/24 Status: Ordered Repeat number: 1 galcanezumab-gnlm 120 mg/mL subcutaneous solution Start: 01/21/25 9:39:00 AM EST Start Date: 01/21/25 Status: Ordered Repeat number: 1 multivitamin Start: 02/18/24 2:32:00 PM EDT, 1 tab, PO, Daily Start Date: 02/18/24 Status: Ordered Repeat number: 1 Tylenol Arthritis Caplet 650 mg oral tablet Start: 08/24/10 12:08:37 PM EDT, See Instructions, Refills: 0, 2 tab PO, PRN: PRN, current medication from another provider Start Date: 08/24/10 Status: Ordered Repeat number: 1 Vitamin D3 Start: 02/18/24 2:34:00 PM EDT, 50 mcg =, PO, Daily Start Date: 02/18/24 Status: Ordered Repeat number: 1 Mental Status 01/21/25 Barriers to Learning one year None evide nt Mandatory Health Literacy Documentation Yes Health Literacy Communication Barriers N ever Primary Language Citizen Of [place] Problem List Condition Confirmation Course Effective Dates Status Health St atus Informant CRP elevated Confirmed Active Chiari malformation type I Confirmed Active Chronic headaches Confirmed Active Chronic headache disorder Confirmed Active Chronic myelogenous leukemia Confirmed Active CML in remission Confirmed Active Lumbar disc disease Confirmed Active Elevated sed rate Confirmed Active KAELA (generalized anxiety disorder) Confirmed Active S/P allogeneic bone marrow transplant Confirmed Active Irritable bowel syndrome without diarrhea Confirmed Active Medication overuse headache Confirmed Active Osteopenia of multiple sites Confirmed Active Body mass index [BMI] 29.0-29.9, adult Confirmed Active Screening mammogram for breast cancer Confirmed Active Colon cancer screening Confirmed Active Skin cancer screening Confirmed Active MDD (major depressive disorder), recurrent episode Confirmed Active Intractable migraine without aura and without status migrainosus Confirmed Active Need for vaccination Confirmed Active Weight disorder Confirmed Active Diagnosis Diagnosis Type Effective Dates Health Status Clinical Service Informant Medication overuse headache Discharge Diagnosis 01/21/25 Non-Specified Intractable migraine without aura and without status migrainosus Discharge Diagnosis 01/21/25 Non-Specified Chronic headache disorder Discharge Diagnosis 01/21/25 Non-Specified MDD (major depressive disorder), recurrent episode Discharge Diagnosis 01/21/25 Non-Specified Screening mammogram for breast cancer Discharge Diagnosis 01/21/25 Non-Specified Irritable bowel syndrome without diarrhea Discharge Diagnosis 01/21/25 Non-Specified KAELA (generalized anxiety disorder) Discharge Diagnosis 01/21/25 Non-Specified Colon cancer screening Discharge Diagnosis 01/21/25 Non-Specified Lumbar disc disease Discharge Diagnosis 01/21/25 Non-Specified Chiari malformation type I Discharge Diagnosis 01/21/25 Non-Specified Osteopenia of multiple sites Discharge Diagnosis 01/21/25 Non-Specified CML in remission Discharge Diagnosis 01/21/25 Non-Specified S/P allogeneic bone marrow transplant Discharge Diagnosis 01/21/25 Non-Specified Body mass index [BMI] 29.0-29.9, adult Discharge Diagnosis 01/21/25 Non-Specified Elevated sed rate Discharge Diagnosis 01/21/25 Non-Specified CRP elevated Discharge Diagnosis 01/21/25 Non-Specified Need for vaccination Discharge Diagnosis 01/21/25 Non-Specified Skin cancer screening Discharge Diagnosis 01/21/25 Non-Specified Procedures Procedure Date Related Diagnosis Body Site Status Breast reduction 12/25/13 Complete d Colonoscopy 2011 Completed Tubal ligation 01/2009 Completed All transplanted bone marrow 11/24/02 Completed section 08/26/02 Complete d EP - Ectopic Co mpleted 1Approximate date Vital Signs Most recent to oldest [Reference Range]: 1 Height 168.4 cm (01/21/25 9:39 AM) Patient Weight 83.6 kg (01/21/25 9:39 AM) Body Mass Index 29.48 kg/m2 (01/21/25 9:39 AM) Temperature [36.5-37.9 DegC] 36.8 DegC (01/21/25 9:39 AM) Heart Rate 62 bpm (01/21/25 9:39 AM) Respiratory Rate 18 br/min (01/21/25 9:39 AM) Blood Pressure 116/78mmHg (01/21/25 9:39 AM) Cuff Pulse Pressure 38 mmHg (01/21/25 9:39 AM) Social History Social History Type Response Smoking Status Never smoked cigaret jany Sex Female Sex Representation Female (finding) FCM Outpt Note * DO Torre Allison B: PERFORM Event Display: FCM Outpt Note Authored Date: [id number] Chief Complaint establish care History of Present Illness Patient is a 49 year old female that presents to the office to establish care. She was previously followed by [facility]. Past medical history, past surgical history, family history reviewed and updated. Patient currently follows withneurology. She has a history of Chiari malformationand migraine. She was evaluated byneurosurgery in August 2023regarding her Chiari malformation. Mild Chiari malformation with normal CSF flow studies. Even though hersign flow is normal, we discussedthat we could offer surgical intervention. She had a lengthy discussion. She followed up with neurology in December 2024. She had complaints of daily headaches. She had been taking a combination of acetaminophen and ibuprofen multiple times the day. She has tried occipital pain injectionswithout benefit. She had previously triedTopamax. Plan was to start Emgality monthly for prevention and sumatriptan 50 mg as needed for rescue. She was to decrease herOTC medications to less than 3 times per week. Sheprefers to avoid surgery at this time. There was a consideration of a swallow study as she had hoarseness and intermittent difficulty swallowingthat could be related to Chiarimalformation. She has a follow-up with neurology in April. Patienthad a telephonemedicine visit in February 2024 with psychiatry for panic disorder and moderatedepression. She is currently on Prozac and Buspar. She does not wish to follow up with anyone. She had her last physical in January 2024. Patient has a history ofCML in remission for 21 years. She is status post allogenic bone marrowtransplantfrom herbrother in August 2003. She sees oncology,Dr.Ehmannat [place] once a year. She reports that she is up-to-date with gynecology. Recent blood work in November 2024 demonstrated normal CMP. CBC was stable. CRP was elevated at 55 and sed rate was elevated at 63. Rheumatoid factor was negative and CCP antibody was negative. A respiratory panel was positive for RSV. HLA-B27 was negative. She is due for fasting blood work. Concerned about her weight gain. Her BMI is 39. She denies anyfamilyhistory of medullary thyroid carcinoma or multiple endocrine neoplasm. She denies anypersonal history of medullary thyroid cancer. Her father had cholangiocarcinoma. Physical:01/2024 Dentist:_UTD Vision:_UTS Colonoscopy: Patient believes 5 years ago? Referral to GI. Hep C: Negative 2021. HIV:_Declines LDCT(50-80 20 PYH or quit 15 yrs ago):_N/A Immunizations: COVID:_UTD Flu:_Recommend PneumococcalDeclined Shingrix:_Recommend TD:_Recommend RSV (> 65): N/A Women's Health: Mammogram:07/2023. PAP: UTD. Follows [facility]. Dexa: Pending Review of Systems Constitutional: No fever, No chills, No fatigue._ Respiratory: No shortness of breath, No cough, No wheezing. _ Cardiovascular: no lightheadedness/presyncope, No chest pain, No palpitations._ Gastrointestinal: No nausea, No vomiting, No diarrhea, No constipation, No heartburn, No abdominal pain._ Musculoskeletal: No back pain, No neck pain, No joint pain, No muscle pain, No decreased range ofmotion, No trauma._ Skin: No rash, No pruritus, No breakdown._ Neurologic:No abnormal balance, No numbness, No tingling, No headache._ Physical Exam Vitals & Measurements T:36.8C HR:62(Monitored) RR:18 BP:116/78 SpO2:98% HT:168.4cm WT:83.6kg WT:83.600kg(Dosing) BMI:29.48 PHQ2 Data(Data Documented on:01/21/2025 09:39) Emotional health assessment NEGATIVE General: _Alert and oriented, No acute distress HEENT: _ Normocephalic, TM clear, Nl gross hearing, moist oral mucosa _ Cardiovascular: _Normal rate, Regular rhythm, No murmur, No gallop. Respiratory: _Lungs are clear to auscultation, Respirations are non-labored, Breath sounds are equal Gastrointestinal: _Soft, Non-tender, Non-distended, Normal bowel sounds. Musculoskeletal: _Normal range of motion,normal strength. Neurologic:Normal sensory, Normal motor function, CN II-XII grossly intact. Integumentary: _Warm, Dry, Clare. Psych: Mood-affect congruence. Reports no SI/HI. Speech is of normal pace and content Assessment/Plan 1.Irritable bowel syndrome without diarrhea Stable. Follow-up with GI. 2.Lumbar disc disease Stable. Continue to monitor. 3.Chiari malformation type I Follow up with Nuerology and neurosurgery as scheduled. Patient reports her headaches are worsening, and could be secondary toChiari. Recommend surgery. 4.Osteopenia of multiple sites DEXA scan pending. Vitamin D level pending. 5.Intractable migraine without aura and without status migrainosus Continue Emgality per neurology. Sumatriptan as needed. 6.Chronic headache disorder Continue Emgality per neurology. Sumatriptan as needed. 7.Medication overuse headache Continue to follow with neurology. Headachehas improved slightly, but follow-up with neurosurgery. 8.CML in remission Stable. Continue to follow-up with hematology. She is due in January. 9.S/P allogeneic bone marrow transplant Stable. Continue to follow-up withhematology. She is due in January. 10.MDD (major depressive disorder), recurrent episode Stable. Continue Prozac. 11.CRP elevated Elevated CRP and suspect secondary to RSV infection. RepeatCRP. 12.Elevated sed rate Repeatsed rate. Suspect secondary to RSVas this was obtained when she was ill. 13.KAELA (generalized anxiety disorder) Stable on Prozac. Patient does not wish to follow with counseling. 14.Screening mammogram for breast cancer Patient overdue for mammogram. Mammogram ordered. 15.Colon cancer screening Patient reportscolonoscopy approximately 5 years ago at [facility] with Dr. Duncan. Would like to obtain records. Will send a referral over, as it may have been longer?. 16.Need for vaccination Recommend Shingrix, Tdap, and flu shot. Sent Tdap to the pharmacy. 17.Body mass index [BMI] 29.0-29.9, adult BMI 29. Patient does not qualify for GLP-1 today. She will look into coverage. She willhaveblood work to determine if she has any underlyingdiabetes. 18.Skin cancer screening Referral to Dermatology. Need previous records from GI and Gynecology. Fast blood work pending. Return to the officein 3 months or sooner as needed. Patient concerned about weight gain. She does not qualify for GLP-1 due to BMI is less than 30. She tried Contrave in the past and had side effects. She had been on Adipex without much relief. Blood work pending. May need to follow-up with GI nutrition. Problem List/Past Medical History Ongoing Anxiety and depression Body mass index [BMI] 29.0-29.9, adult Chiari malformation type I Chronic headache disorder Chronic headaches Chronic myelogenous leukemia CML in remission Colon cancer screening Constipation CRP elevated Elevated sed rate KAELA (generalized anxiety disorder) Intractable migraine without aura and without status migrainosus Irritable bowel syndrome without diarrhea Lumbar disc disease MDD (major depressive disorder), recurrent episode Medication overuse headache Need for vaccination Osteopenia of multiple sites S/P allogeneic bone marrow transplant Screening mammogram for breast cancer Skin cancer screening Weight disorder Procedure/Surgical History Breast reduction| Service Date: 12/25/2013Colonoscopy| Service Date: 2011Tubal ligation| Service Date: ll transplanted bone marrow| Service Date: 11/24/2002Cesarean section| Service Date: 08/26/2002EP - Ectopic Medications acetaminophen(Tylenol Arthritis Caplet 650 mg oral tablet), See Instructions, PRN acetaminophen-ibuprofen(Advil Dual Action With Acetaminophen), PRN busPIRone, 10 mg, PO, tid cholecalciferol(Vitamin D3), 50 mcg, PO, Daily FLUoxetine, 20 mg, PO, Daily galcanezumab(galcanezumab-gnlm 120 mg/mL subcutaneous solution) multivitamin, 1 tab, PO, Daily tetanus/diphth/pertuss (Tdap) adult/adol(Boostrix (Tdap vaccine) intramuscular suspension), 0.5 mL,IM, ONCE Allergies Latexrash Levaquinhives morphinehives oxyCODONEsevere headaches Social History Smoking Status Never smoked cigarettes Alcohol - Denies Alcohol Use Exercise - Regular exercise Substance Abuse - Denies Substance Abuse Tobacco - Denies Tobacco Use Intake (IView) Smoking History Cigarette smoker: Never smoked cigarettes Tobacco Product Use: Never used other tobacco products Family History Cholangiocarcinoma: Father. Health Status Family Member(s) Immunizations Vaccine Date Status SARS-CoV-2 (COVID-19) mRNA BNT-162b2 vax 01/06/2021 Recorded SARS-CoV-2 (COVID-19) mRNA BNT-162b2 vax 12/16/2020 Recorded Recommendations Health Maintenance Pending(in the next year) OverDue Lipid Screening due06/05/09and every 1826day Colorectal Cancer Screening due11/21/21and every 10year Adult Influenza Vaccine due05/24/24and every 1year Due Adult Social Determinants of Health Screening due01/21/25Unknown Frequency Adult Tdap/Td Vaccine due01/21/25Unknown Frequency Breast Cancer Screening due01/21/25Unknown Frequency Cervical Cancer Screening due01/21/25Unknown Frequency Hepatitis C Screening due01/21/25One-time only Pneumococcal Vaccine Adults and Adolescents with Chronic Illness due01/21/25One-time only Shingles Vaccine due01/21/25One-time only Satisfied(in the past 1 year) Satisfied Body Mass Index on01/21/25.Satisfied by JAKE Kennedy Sharon Electronic Signature on File Electronically Reviewed/Signed by: Christine Torre DO Author Signature Dt/Tm:01/21/2025 10:43 AM Department of Family Medicine [facility] Patient Care team information Care Team Personnel Name: RUBEN Farrell Ann Smith Position: Nurse Pract - Surgery Oncology Member Role: Lifetime Relationship Address: [address] [place] [address] Telecom: [phone] Name: DO Cross Carey K Position: Referring DIRECT Member Role: Primary Care Provider Address: [address] [place] [address] [place] Telecom: [phone] Care Team Related Persons Name: MARY MONTIEL Name: MARY MONTIEL Insurance Providers Guarantor name: DEBORAH MONTIEL Health Plan Information #: 1 Payer: [employer] Member Number: [id number] Policy Number: NA Group Number: [id number] Health Plan Information #: 2 Payer: [employer] Member Number: [id number] Policy Number: NA Group Number: [id number]"
--- OUTSIDE RECORDS SUMMARY | 2025-02-09 04:08 | External Medical Summary | Summary of Care ---
Author Name Unknown Organization [facility] Address [address] [place] [address] Phone [phone] Care Team Providers Care Raise Driller Name Role Phone Dianna Cross DO Primary Care Provider Reason for Visit * Reason Onset Date Comments Test Results 12/24/2024 Encounter Details Date Type Department Care Team (Late st Contact Info) Description 12/24/2024 Telephone Family Practice [facility] [address] [facility] [place] [address] Dianna Cross DO [address] [facility] [place] [address] Test Results Allergies Active Allergy Reactions Criticality [...] mRNA, LNP-s, No Pre serve, 2-Dose Series ([employer]) 01/06/2021,12/16/2020 Seasonal Influenza Virus Vac cine, Unspecified [...] changed her mind . Please send to [facility] . 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 [address] Lili Casper PA-C [address] [id number] Health Maintenance Due Date Last Done Comments [...] documented as of this encounter Care Teams Raise Driller Relationship Specialty Start Date End Date Dianna Cross DO [address] [place] [address] PCP - General Family Medicine 12/23/24 documented as of this encounter
--- OUTSIDE RECORDS SUMMARY | 2025-02-09 04:08 | External Medical Summary ---
Author Name Unknown Address Unknown Organization [id number]:[facility]ATORY [facility] [place] - [address] [place] [address] Laboratory Report Ordering Provider Test Date Status BRIDGETTE PAUL 12/23/2024 07:46:07 Final Observation Date Value Abnormality Reference (Units ) Status Erythrocyte sedimentation rate by Photometric method 12/23/2024 07:46:07 63 Above high normal <30 (mm/hour) Final Performing Location [facility] - [address] [place] [address]
--- OUTSIDE RECORDS SUMMARY | 2025-02-09 04:08 | External Medical Summary | Summary of Care ---
Author Name Unknown Organization [facility] Address [address] [place] [address] Phone [phone] Care Team Providers Care Body Care Manager Name Role Phone Dianna Cross DO Primary Care Provider Reason for Visit * Reason Onset Date Comments Test Results 12/24/2024 Encounter Details Date Type Department Care Team (Late st Contact Info) Description 12/24/2024 Telephone Family Practice [facility] [address] [facility] [place] [address] Dianna Cross DO [address] [facility] [place] [address] Test Results Allergies Active Allergy Reactions Criticality [...] mRNA, LNP-s, No Pre serve, 2-Dose Series ([employer]) 01/06/2021,12/16/2020 Seasonal Influenza Virus Vac cine, Unspecified [...] changed her mind . Please send to [facility] . Please call patient so she know ws to have someone tack picker * Telephone Encounter - Kathrin Nolasco [...] 01/04/2025 7:00 AM EST Office Visit Neurology [facility] [address] [place] [address] Lili Casper PA-C [address] [phone] Health Maintenance Due Date Last Done Comments [...] documented as of this encounter Care Teams Body Care Manager Relationship Specialty Start Date End Date Dianna Cross DO [address] [place] [address] PCP - General Family Medicine 12/23/24 documented as of this encounter
--- OUTSIDE RECORDS SUMMARY | 2025-02-09 04:08 | External Medical Summary | Summary of Care ---
Author Name Unknown Organization [facility] Address [address] [place] [address] Phone [phone] Care Team Providers Care Service Liaison Representative Name Role Phone [place] Dianna Jeong DO Primary Care Provider Reason for Visit * Reason Onset Date Comments Precert Future 01/04/2025 Encounter Details Date Type Department Care Team (Late st Contact Info) Description 01/04/2025 Telephone [facility] [address] [id number] Lili Casper PA-C [address] [facility] [place] [id number] Precert Future Allergies Active Allergy Reactions Criticality Noted Date [...] mRNA, LNP-s, No Pre serve, 2-Dose Series ([employer]) 01/06/2021,12/16/2020 Seasonal Influenza Virus Vac cine, Unspecified [...] encounter Miscellaneous Notes * Telephone Encounter - Miriam Springer LPN - 01/04/2025 9:00 AM EST Neurology Pre-Cert Request Medication/Disease State Information: Medication: Galcanezumab (Emgality) - 120mg/ml Pen - Initiation - 240mg once then, 120mg once a month Diagnosis (including ICD-10): Migraine - Migraine without aura G43.0 - Self- administered - route pre-cert request to [id number]. Number of headache days per month: 15 Last office visit within the past year: yes See corresponding visit note(s) for additional supporting clinical information. Office Information: Prescriber: Lili Casper PA-C documented in this encounter Plan of Treatment Upcoming Encounters Date Type Department Care Team (Late st Contact Info) Description 05/24/2025 7:00 AM EDT Office Visit Neurology [facility] [address] [place] [address] Lili Casper PA-C [address] [place] [id number] Health Maintenance Due Date [...] documented as of this encounter Care Teams Service Liaison Representative Relationship Specialty Start Date End Date Dianna Cross DO [facility] [place] [place] [address] PCP - General Family Medicine 12/23/24 documented as of this encounter
--- OUTSIDE RECORDS SUMMARY | 2025-02-09 04:09 | External Medical Summary | Summary of Care ---
Author Name Unknown Organization [facility] Address [address] [place] [address] Phone [phone] Care Team Providers Care Ed Teacher Name Role Phone Unavailable Primary Care Provider Unavailabl e Reason for Visit * Reason Onset Date Comments Medication Refill 08/17/2024 Encounter Details Date Type Department Care Team (Late st Contact Info) Description 08/17/2024 Refill Psychiatry [facility] [place] [address] [place] [address] August Varela MD [address] [place] [address] KAELA (generalized anxiety disorder) Allergies Active Allergy Reactions Criticality Noted Date Comments Latex 01/23/2015 Levofloxacin 01/23/2015 Morphine 01/23/2015 documented as of this encounter (statuses as of 08/17/2024) Medications Medication Sig Dispensed Refills Start Date End Date Status Polyethylene Glycol 3350 17 GM/SCOOP Oral Powder (MiraLax)Indicat ions:Abdominal bloating Take 17 g by mouth as needed for Constipation. Dissolve one heaping tablespoon in 8 ounces of water or juice. 02/08/2021 Active Vitamin D 50 MCG (2000 UT) Oral Capsule Take 2,000 Units by mouth daily. Active Multivitamin Adult Oral Tablet Take by mouth. Active Advil Dual Action 125-250 MG Oral Tablet (Ibuprofen-Aceta minophen) Take by mouth . Active FLUoxetine HCl 20 MG Oral Capsule (PROzac) Take 1 Capsule by mouth in the morning. 30 Capsule 5 08/17/2024 Active hydrOXYzine HCl 50 MG Oral TabletIndication s:KAELA (generalized anxiety disorder) Take 1 Tablet by mouth every 6 hours as needed for Anxiety. 40 Tablet 2 08/17/2024 Active clonazePAM 1 MG Oral Tablet (KlonoPIN) Take 1 Tablet by mouth every night at bedtime. May also take 0.5 Tablets daily as needed for Anxiety. 45 Tablet 08/17/2024 Active busPIRone HCl 10 MG Oral Tablet (Buspar) Take 1 Tablet by mouth in the morning and 1 Tablet at noon and 1 Tablet before bedtime. 60 Tablet 5 08/17/2024 Active hydrOXYzine HCl 50 MG Oral TabletIndication s:KAELA (generalized anxiety disorder) Take 1 Tablet by mouth every 6 hours as needed for Anxiety. 40 Tablet 2 02/05/2024 08/17/2024 Discontinue d(Refill) clonazePAM 1 MG Oral Tablet (KlonoPIN) Take 1 Tablet by mouth every night at bedtime. May also take 0.5 Tablets daily as needed for Anxiety. 45 Tablet 02/13/2024 08/17/2024 Discontinue d(Refill) FLUoxetine HCl 20 MG Oral Capsule (PROzac) Take 1 Capsule by mouth in the morning. 30 Capsule 5 02/13/2024 08/17/2024 Discontinue d(Refill) busPIRone HCl 10 MG Oral Tablet (Buspar) Take 1 Tablet by mouth in the morning and 1 Tablet at noon and 1 Tablet before bedtime. 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 Diagnosed when 7.5 months . Given Gleevac. S/p bone marrow transplant. 2001. 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 Intractable migraine without aura and without status migrainosus 02/08/2021 Abdominal bloating 02/08/2021 Lumbar degenerative disc disease 02/08/2021 Osteopenia of multiple sites 02/08/2021 History of Chiari malformation 09/15/2019 Irritable bowel syndrome without diarrhea 2015 documented as of this encounter (statuses as of 08/17/2024) Resolved Problems Problem Noted Date Diagnosed Date Resolved Date Headache 02/08/2021 02/08/2021 Lumbago 02/08/2021 02/08/2021 Urge incontinence 02/08/2021 02/08/2021 Overweight (BMI 25.0-29.9) 02/08/2021 0 02/22/2022 documented as of this encounter (statuses as of 08/17/2024) Immunizations Name Administration Dates Next Due COVID-19 mRNA, LNP-s, No Pre serve, 2-Dose Series (be[employer]) 01/06/2021,12/16/2020 Seasonal Influenza Virus Vac cine, Unspecified [...] No 02/06/2024 Does the household have a [facility] source [facility] income? (Household - for ages [...] ages 0-17 years) Not on file 02/06/2024 Sex and Gender Information Value Date Recorded Sex Assigned at Female 02/06/2024 8:50 AM EDT Gender Identity Female 02/06/2024 8:50 AM EDT Sexual Orientation Straight 02/06/2024 8: 50 AM EDT Job Start Date Occupation Industry Not on file Not on file Not on file documented as of this encounter Miscellaneous Notes * Telephone Encounter - August Varela MD - 08/17/2024 12:09 PM EDT Patient had recent intake appointment canceled. In order to minimize risk of decompensation will provide further supply of medication to last until she establishes longitudinal psychiatric care. * Telephone Encounter - August Varela MD - 08/17/2024 12:09 PM EDTSigned Prescriptions: Disp Refills FLUoxetine HCl 20 MG Oral Capsule (PROzac) 30 Cap*5 Sig: Take 1 Capsule by mouth in the morning. Authorizing Provider: AUGUST VARELA hydrOXYzine HCl 50 MG Oral Tablet 40 Tab*2 Sig: Take 1 Tablet by mouth every 6 hours as needed for Anxiety. Authorizing Provider: AUGUST VARELA clonazePAM 1 MG Oral Tablet (KlonoPIN) 45 Tab*0 Sig: Take 1 Tablet by mouth every night at bedtime. May also take 0.5 Tablets daily as needed for Anxiety. Authorizing Provider: AUGUST VARELA busPIRone HCl 10 MG Oral Tablet (Buspar) 60 Tab*5 Sig: Take 1 Tablet by mouth in the morning and 1 Tablet at noon and 1 Tablet before bedtime. Authorizing Provider: AUGUST VARELA * Telephone Encounter - Penny Wing LPN - 08/17/2024 11:58 AM EDT Pharmacy requesting refill on Prozac. Medication was last filled on 02/16/24 with 5 refills. Patientlast seen on 02/13/24 with return appointment scheduled for need appointment. Patient had 0 cancelled appointments and 0 NO SHOW appointments. documented in this encounter Plan of Treatment Health Maintenance Due Date Last Done Comments Lipid Panel 1973 Pneumococcal Vaccine: Pediatrics (0 to 5 Years) and At-Risk Patients (6 to 64 Years) (1 of 2 - PCV) 1979 HIV Screening 1988 DTap/Tdap Vaccines (1 - Tdap) 1992 Hepatitis B Vaccine (1 of 3 - 19+ 3-dose series) 1992 Zoster Vaccines (1 of 2) 1992 [...] as of this encounter Visit Diagnoses Diagnosis KAELA (generalized anxiety disorder) Generalized anxiety disorder documented in this encounter
--- OUTSIDE RECORDS SUMMARY | 2025-02-09 04:09 | External Medical Summary | Summary of Care ---
Author Name Unknown Organization [facility] Address [address] [place] [address] Phone [phone] Care Team Providers Care Program Instructor Name Role Phone Unavailable Primary Care Provider Unavailabl e Reason for Visit * Reason Onset Date Comments Advice 09/02/2024 COVID +, plaxovi d Encounter Details Date Type Department Care Team (Late st Contact Info) Description 09/02/[address] [facility] [address] [facility] [place] [address] Dianna Cross, [address] [facility] [place] [address] Advice (COVID +, plaxovid) Allergies Active Allergy Reactions Criticality Noted Date Comments Latex 01/23/2015 Levofloxacin 01/23/2015 Morphine 01/23/2015 documented as of this encounter (statuses as of 12/02/2024) Medications Polyethylene Glycol 3350 17 GM/SCOOP Oral [...] the morning. 30 Capsule 5 4 Active hydrOXYzine HCl 50 MG Oral TabletIndicatio ns:KAELA (generalized anxiety disorder) Take 1 Tablet by mouth every 6 hours as needed for Anxiety. 40 Tablet 2 4 Active clonazePAM 1 MG Oral Tablet (KlonoPIN) Take 1 Tablet by mouth every night at bedtime. May also take 0.5 Tablets daily as needed for Anxiety. 45 Tablet 4 Active busPIRone HCl 10 MG Oral Tablet (Buspar) Take 1 Tablet by mouth in the morning and 1 Tablet at noon and 1 Tablet before bedtime. 60 Tablet 5 4 Active Nirmatrelvir&Ri tonavir 300/100 20 x 150 MG & 10 x 100MG Oral Tablet Therapy Pack (Paxlovid (300/100)) Take 2 pink tablets of Nirmatrelvir and 1 white tablet of Ritonavir two times a day by mouth. 30 Tablet 4 Active documented as of this encounter (statuses as of 12/02/2024) Active Problems Problem Noted Date Diagnosed Date [...] as of this encounter (statuses as of 12/02/2024) Resolved Problems Problem Noted Date Diagnosed Date Resolved Date Headache 02/08/2021 02/08/2021 Lumbago 02/08/2021 02/08/2021 Urge incontinence 02/08/2021 02/08/2021 Overweight (BMI 25.0-29.9) 02/08/2021 0 02/22/2022 documented as of this encounter (statuses as of 12/02/2024) Immunizations Name Administration Dates Next Due COVID-19 mRNA, LNP-s, No Pre serve, 2-Dose Series ([employer]) 01/06/2021,12/16/2020 Seasonal Influenza Virus Vac cine, Unspecified [...] encounter Miscellaneous Notes * Telephone Encounter - Ashley Russ LPN - 09/02/2024 2:06 PM EDT Yes patient is positive per additional comments noted Additional Comments: Patient is asking if she can get the plaxovid for covid, is in remission for leukemia and this is her 3rd time positive for covid. * Telephone Encounter - Dianna Cross DO - 09/02/2024 12:49 PM EDT So is the covid test positive or not? * Telephone Encounter - Taty Bauer OSA - 09/02/2024 9:47 AM EDT Reason for patient call/what is patient requesting? medication Have you had symptoms of COVID-19 such as fever, sore throat, shortness of breath? COVID19 Symptoms:yes Date of first symptoms: few days ago Date of last fever: na Date of last symptoms: na Have you had close exposure to someone who tested positive for COVID-19? COVID19 Exposure: unknown Date of first exposure: na Date of last exposure: na Testing location requested: home 3 tests taken Positive COVID 19 test in the past 90 days? Clinic Test na Home test na Did you have 2 vaccines yes Boosters no Call Details are Required documented in this encounter Plan of Treatment Upcoming Encounters Date Type Department Care Team (Late st Contact Info) Description 03/08/2025 1:30 PM EDT Telemedicine Psychiatry, [facility] [address] [place] [address] Adrien Garg MD [address] [place], [place] [id number] Health Maintenance Due Date Last Done Comments Lipid Panel 1973 HIV Screening 1988 DTap/Tdap Vaccines (1 - Tdap) 1992 Hepatitis B Vaccine (1 of 3 - 19+ 3-dose series) 1992 Pneumococcal Vaccine: 50+ Years (1 of 2 - PCV) 1992 Pneumococcal Vaccine: Pediatrics (0 to 5 Years) and At-Risk Patients (6 to 18 Years and 19+ Years) (1 of 2 - PCV) 1992 Zoster [...]
--- OUTSIDE RECORDS SUMMARY | 2025-02-09 04:09 | External Medical Summary ---
Author Name Unknown Address Unknown Organization K01:[facility] [address] [facility] [place] [address] Laboratory Report Ordering Provider Test Date Status BRIDGETTE PAUL 12/23/2024 07:46:07 Final Observation Date Value Abnormality Reference (Units ) Status Adenovirus DNA [Presence] in Nasopharynx by DORIS with non-probe detection 12/23/2024 07:46:07 Negative Negative Final Human coronavirus 229E RNA [Presence] in Nasopharynx by DORIS with non-probe detection 12/23/2024 07:46:07 Negative Negative Final Human coronavirus HKU1 RNA [Presence] in Nasopharynx by DORIS with non-probe detection 12/23/2024 07:46:07 Negative Negative Final Human coronavirus NL63 RNA [Presence] in Nasopharynx by DORIS with non-probe detection 12/23/2024 07:46:07 Negative Negative Final Human coronavirus OC43 RNA [Presence] in Nasopharynx by DORIS with non-probe detection 12/23/2024 07:46:07 Negative Negative Final SARS-CoV-2 (COVID-19) RNA [Presence] in Nasopharynx by DORIS with non-probe detection 12/23/2024 07:46:07 Negative Negative Final Human metapneumovirus RNA [Presence] in Nasopharynx by DORIS with non-probe detection 12/23/2024 07:46:07 Negative Negative Final Rhinovirus+Enterovirus RNA [Presence] in Nasopharynx by DORIS with non-probe detection 12/23/2024 07:46:07 Negative Negative Final Influenza virus A RNA [Presence] in Nasopharynx by DORIS with non-probe detection 12/23/2024 07:46:07 Negative Negative Final Influenza virus B RNA [Presence] in Nasopharynx by DORIS with non-probe detection 12/23/2024 07:46:07 Negative Negative Final Parainfluenza virus 1 RNA [Presence] in Nasopharynx by DORIS with non-probe detection 12/23/2024 07:46:07 Negative Negative Final Parainfluenza virus 2 RNA [Presence] in Nasopharynx by DORIS with non-probe detection 12/23/2024 07:46:07 Negative Negative Final Parainfluenza virus 3 RNA [Presence] in Nasopharynx by DORIS with non-probe detection 12/23/2024 07:46:07 Negative Negative Final Parainfluenza virus 4 RNA [Presence] in Nasopharynx by DORIS with non-probe detection 12/23/2024 07:46:07 Negative Negative Final Respiratory syncytial virus RNA [Presence] in Nasopharynx by DORIS with non-probe detection 12/23/2024 07:46:07 Positive Abnormal Negative Final Respiratory Syncytial virus detected by PCR (amplified probe). Test results reported to [facility]. Bordetella pertussis.pertuss is toxin promoter region [Presence] in Nasopharynx by DORIS with non-probe detection 12/23/2024 07:46:07 Negative Negative Final Chlamydophila pneumoniae DNA [Presence] in Nasopharynx by DORIS with non-probe detection 12/23/2024 07:46:07 Negative Negative Final Mycoplasma pneumoniae DNA [P resence] in Nasopharynx by DORIS with non-probe detection 12/23/2024 07:46:07 Negative Negative Final Bordetella parapertussis IS1 001 DNA [Presence] in Nasopharynx by DORIS with non-probe detection 12/23/2024 07:46:07 Negative Negative F inal The primers that detect Rhin ovirus may cross react with some Enterorviruses. The validation of bronchial specimens, tracheal aspirates, and throats for this assay was developed and performance characteristics determined by [employer]. The validation of alternate specimen types has not been cleared or approved by the U.S. Food and Drug Administration (FDA). It has been determined that such clearance or approval is not necessary. Performing Location [facility] - [facility] [address] [facility] [place] [facility] [address]
--- OUTSIDE RECORDS SUMMARY | 2025-02-09 04:09 | External Medical Summary ---
Author Name Unknown Address Unknown Organization K01:LABORATORY [facility] [place] - [address] [place] [address] Laboratory Report Ordering Provider Test Date Status BRIDGETTE PAUL 12/23/2024 07:46:07 Final Observation Date Value Abnormality Reference (Units ) Status WBC, Total 12/23/2024 07:46:07 5.31 4.00-10.80 (K/uL) Final RBC 12/23/2024 07:46:07 4.32 3.85-5.15 (M/uL) Final Hemoglobin 12/23/2024 07:46:07 13.5 12.0-15.3 (g/dL) Final HCT 12/23/2024 07:46:07 40.4 36.0-45.2 (%) Final MCV 12/23/2024 07:46:07 93.5 81.5-97.5 (fL) Final MCH 12/23/2024 07:46:07 31.3 27.0-34.0 (pg) Final MCHC 12/23/2024 07:46:07 33.4 32.0-36.0 (g/dL) Final RDW 12/23/2024 07:46:07 12.3 11.5-15.5 (%) Final Platelets 12/23/2024 07:46:07 279 140-400 (K/uL) Final MPV 12/23/2024 07:46:07 9.7 6.6-11.1 (fL) Final Nucleated erythrocytes/100 leukocytes [Ratio] in Blood by Automated count 12/23/2024 07:46:07 0 <=0 (/100 WBCs) Final Performing Location LAB[facility]ATORY [facility] [place] - [address] [place] [address]
[2025-02-09] MEDS: FLUoxetine HCL 20 MG CAP PO SCH (07:56)
--- NOTE | 2025-02-09 11:08 | Discharge Summary ---
Discharge Summary Date of Service February 09, 2025 Principal Dx & Hospital Course #1 = Principal Diagnosis (1) Atypical chest pain: No acute EKG changes. Serial troponins negative. She will follow-up with her PCP as soon as possible for scheduling of outpatient stress testing (2) Chronic migraine: Stable. Continue current medical management (3) Anxiety: Stable. Continue current medical management Plan Home todayFebruary 09 Admission HPI Per Admitting Provider Patient is a 49-year-old female history of Chiari malformation, daily headaches/migraines, anxiety, and 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 She states that after she ate lunch, she noted left chest tightness that lasted for a few seconds. Minutes later she has chest tightness/pain that radiated to left shoulder. She tried taking tums, which did not stop further short episodes of left sided chest symptoms. She states some episodes have accompanying SOB, however denies dizziness, nausea, or jaw pain. Today, she has had some belching and heartburn sensations since coming to ED. Pt denies history of previous episodes of chest pain with or without exercise. Pt walks her dog up to 2 miles 3-5 times per week. Pt reports she follows with a neurologist of [place] for the Chiari malformation and states she is a candidate for surgery. She follows with oncology for her hx of CML, next annual appointment is next week. Discharge Exam General-alert and oriented x3, no fever, no chills HEENT-head atraumatic and normocephalic, pupils equal and reactive to light, extraocular muscles intact Neck-no lymphadenopathy or thyromegaly, trachea midline Chest-clear to auscultation. No rales, wheezing or rhonchi Cardiac-regular rate and rhythm, normal S1 and S2 Abdomen-normal bowel sounds, no hepatosplenomegaly Extremities-no cyanosis, clubbing, or edema Neuro-cranial nerves II through XII intact, motor and sensory function within n ormal limits, strength symmetrical, no focal deficits Psych-normal affect, normal mood Discharge Plan Discharge Items Patient Disposition: Home - Self-Care Reason For Visit: CHEST PAIN Discharge Diagnosis: Atypical chest pain Activity: Resume your previous activity Non-emergency contact: Primary Care Provider Call non-emergency contact if: your symptoms worsen Follow-up/Referrals: Christine Torre, DO [Primary Care Provider] - (PLEASE CALL YOUR PRIMARY CARE PROVIDER TO SCHEDULE A HOSPITAL DISCHARGE FOLLOW-UP APPOINTMENT WITHIN 7-10 DAYS.) Diet: Regular Addtl Attending Provider Instructions: See primary care provider as soon as possible for scheduling of outpatient stress testing Pending Studies at Discharge: No Stand-Alone Forms: My [facility] [employer] Interactive, Smoking Cessation Medications and DC Order Prescriptions: Continued cyanocobalamin (vitamin B-12) [Vitamin B-12] 1,000 mcg Tablet 1,000 mcg PO DAILY buspirone 10 mg tablet 10 mg PO BID fluoxetine 20 mg capsule 20 mg PO DAILY cholecalciferol (vitamin D3) [Vitamin D3] 50 mcg (2,000 unit) Tablet 1,000 mcg PO BID Emgality Pen 120 mg/mL pen injector 120 mg SUBCUT MONTHLY Rx Instructions: PER PT "DUE SOON". Discharge Orders: Discharge Order (Routine); Ordered 02/09/25 Ordered By: Ata Hope Admission Data Admit Date/Time: 02/08/25 18:44 Attending Provider: Ata Hope Admit Provider: Lili Greenberg Primary Care Provider: Christine Torre Other Providers: Micha Paulino Hospital Stay Data Consultations 02/08/25 17:54 ED Decision to Admit Stat Pending Results Patient Have Any Pending Studies at Discharge: No Discharge Instructions Given to Patient (Per Discharging Provider) See primary care provider as soon as possible for scheduling of outpatient stress testing Total Time Total Time Spent Total Time Spent (In Minutes): 45 minutes Coding Level of Care Code 78469 INP/OBS DISCH >30 MIN Diagnoses Atypical chest pain R07.89 Chronic migraine G43.709 Anxiety F41.9
--- NOTE | 2025-02-09 11:30 | Electrocardiogram Report ---
Test Reason : Blood Pressure : */* mmHG Vent. Rate : 59 BPM Atrial Rate : 59 BPM P-R Int : 146 ms QRS Dur : 98 ms QT Int : 388 ms P-R-T Axes : 57 26 19 degrees QTcB Int : 384 ms Sinus bradycardia Incomplete right bundle branch block Borderline ECG When compared with ECG of 28-Feb-2021 11:05, Incomplete right bundle branch block is now Present Confirmed by Emiliano Garcia ([id number]) on 02/09/2025 11:30:38 AM Referred By: REFERRED SELF Confirmed By: Emiliano Garcia
--- NOTE | 2025-02-09 11:33 | Electrocardiogram Report ---
Test Reason : Blood Pressure : */* mmHG Vent. Rate : 57 BPM Atrial Rate : 57 BPM P-R Int : 150 ms QRS Dur : 100 ms QT Int : 398 ms P-R-T Axes : 51 22 17 degrees QTcB Int : 387 ms Sinus bradycardia Incomplete right bundle branch block Borderline ECG When compared with ECG of 08-Feb-2025 16:36, (unconfirmed) No significant change was found Confirmed by Emiliano Garcia ([id number]) on 02/09/2025 11:32:50 AM Referred By: REFERRED SELF Confirmed By: Emiliano Garcia
--- OUTSIDE RECORDS SUMMARY | 2025-02-09 14:47 | External Medical Summary | Summary of Care ---
Author Name Unknown Organization [facility] Address [address] [place] [address] Phone [phone] Care Team Providers Care Soil Sampler Name Role Phone Dianna Cross DO Primary Care Provider Encounter Details Date Type Department Care Team (Late st Contact Info) Description 02/09/2025 Orders Only Family Practice [facility] [address] [place] [address] Dianna Cross DO [address] [facility] [place] [place] [address] Allergies Active Allergy Reactions Criticality Noted Date Comments Latex 01/23/2015 Levofloxacin 01/23/2015 Morphine 01/23/2015 documented as of this encounter (statuses as of 02/09/2025) Medications Polyethylene Glycol 3350 17 GM/SCOOP Oral [...] as of this encounter (statuses as of 02/09/2025) Active Problems Problem Noted Date Diagnosed Date [...] as of this encounter (statuses as of 02/09/2025) Resolved Problems Problem Noted Date Diagnosed Date Resolved Date Headache 02/08/2021 02/08/2021 Lumbago 02/08/2021 02/08/2021 Urge incontinence 02/08/2021 02/08/2021 Overweight (BMI 25.0-29.9) 02/08/2021 0 02/22/2022 documented as of this encounter (statuses as of 02/09/2025) Immunizations Name Administration Dates Next Due COVID-19 mRNA, LNP-s, No Pre serve, 2-Dose Series (Pfizer) 01/06/2021,12/16/2020 Seasonal Influenza Virus Vac cine, Unspecified [...] 05/24/2025 7:00 AM EDT Office Visit [facility] [place] [address] [place] [address] Lili Casper PA-C [address] [id number] Health Maintenance Due Date Last Done Comments Lipid Panel 1973 HIV Screening 1988 DTap/Tdap Vaccines (1 - Tdap) 1992 Hepatitis B Vaccine (1 of 3 - 19+ 3-dose series) 1992 Pneumococcal Vaccine: 50+ Years (1 of 2 - PCV) 1992 Zoster Vaccines (1 of 2) 1992 HPV/Co-Test 2003 Cologuard 2018 Colonoscopy 2018 Colorectal Cancer Screening 2018 Fecal Occult Blood Test 2018 Sigmoidoscopy 2018 COVID-19 Vaccine (3 - Pfizer risk series) 02/03/2021 01/06/2021, 12/16/2020 Depression Monitoring 03/16/2022 03/16/2021 Influenza Vaccine (FLU shot) (#1) 2024 09/15/2019, 09/15/2019, 10/17/2010 Mammogram 08/22/2024 08/22/2023, 1211/2019, 10/09/2017, Additional history exists Diabetes Screening 12/23/2027 12/23/2024, 0 01/31/2024, 02/22/2022, Additional history exists Cervical Cancer Screening 02/10/2028 Pap Smear 02/10/2028 08/29/2023 HPV (Gardasil) Vaccine Aged Out No lo nger eligible based on patient's age to complete this topic MENINGOCOCCAL (MENACTRA/MENVEO) Aged Out No longer eligible based on patient's age to complete this topic Meningitis B Vaccine (Bexsero/Trumemba) Aged Out No longer eligible based on patient's age to complete this topic documented as of this encounter Medical Devices Not on filedocumented as of this encounter Procedures Procedure Name Priority Date/Time Associated Diagnosis Comments PAP SMEAR, OUTSIDE PROCEDURE Routine 08/29/2023 documented in this encounter Results * PAP SMEAR, OUTSIDE PROCEDURE (08/29/2023) 08/29/2023 us Adrien Samaniego MD LABORATORY Final Result OUTSIDE LAB (SEE SCANNED REPORT) documented in this encounter Care Teams Soil Sampler Relationship Specialty Start Date End Date Dianna Cross DO [address] [place] [address] PCP - General Family Medicine 12/23/24 documented as of this encounter
--- NOTE | 2025-02-10 08:47 | Electrocardiogram Report ---
Test Reason : Blood Pressure : */* mmHG Vent. Rate : 61 BPM Atrial Rate : 61 BPM P-R Int : 154 ms QRS Dur : 92 ms QT Int : 406 ms P-R-T Axes : 51 4 13 degrees QTcB Int : 408 ms Normal sinus rhythm Incomplete right bundle branch block Borderline ECG When compared with ECG of 08-Feb-2025 16:49, No significant change was found Confirmed by Emiliano Garcia ([id number]) on 02/10/2025 8:46:42 AM Referred By: REFERRED SELF Confirmed By: Emiliano Garcia
== END 2025-02-09 11:49 | disposition home or self-care (01) ==
LOC: ED 16:21 → 2N 16:21 → SUATTDRO 18:44 → 2N 20:50